=== PATIENT | male | born 1980 | race American Indian/Alaskan Native ===

== ENCOUNTER 2020-10-04 10:33 | Inpatient (IN) | payer SELFPAY ==
[2020-10-04] MEDS ORDERED: Sodium Chloride 0.9% 1,000 ML IV ONE ×2 (10:44→12:33)
--- NOTE | 2020-10-04 11:02 | EDM.PDOC ---
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 Pt states he as been 'sweating' a lot over the past 3 days. He states no alcohol use in the last several days. He states he has been drinking large amounts of water. He admits to reusing needles with his drug use. Onset: Sudden Onset Date: 10/02/20 Onset Time: 08:00 Duration: Getting Worse Location: Reports: Abdomen, Generalized Quality: Reports: Ache (all over ), Sharp (abdomen) Improves with: Reports: None Worsens with: Reports: None Associated Symptoms: Reports: Diaphoresis, Fever/Chills Right Lower Abdominal Pain Score (Numeric/FACES): 10 (gerneralized) back Pain Score (Numeric/FACES): 7 - Related Data Allergies Allergy/AdvReac Type Severity Reaction Status Date / Time No Known Allergies Allergy Verified 10/04/20 17:00 Home Meds: Home Meds NK [No Known Home Meds] 10/04/20 [History] ED ROS GENERAL - Review of Systems Review Of Systems: See Below Constitutional: Reports: Chills, Weakness, Diaphoresis HEENT: Reports: No Symptoms Respiratory: Reports: Shortness of Breath Cardiovascular: Reports: Lightheadedness Endocrine: Reports: No Symptoms GI/Abdominal: Reports: Abdominal Pain (right lower quadrant), Constipation, Vomiting (yesterday, brown) : Reports: No Symptoms Musculoskeletal: Reports: Neck Pain, Back Pain, Muscle Pain Skin: Reports: Diaphoresis Neurological: Reports: Headache Psychiatric: Reports: No Symptoms Hematologic/Lymphatic: Reports: No Symptoms ED EXAM, SEPSIS - Physical Exam Exam: See Below Exam Limited By: No Limitations General Appearance: Alert, Moderate Distress Eye Exam: Bilateral Eye: Abnormal EOM Ears: Normal External Exam, Normal Canal, Hearing Grossly Normal, Normal TMs Nose: Normal Inspection, No Blood Throat/Mouth: Normal Inspection, Normal Lips, Normal Teeth, Normal Gums, Normal Oropharynx, Normal Voice, No Airway Compromise Head: Atraumatic, Normocephalic Neck: Normal Inspection, Supple, Full Range of Motion Respiratory/Chest: Lungs Clear, Normal Breath Sounds Cardiovascular: Normal Peripheral Pulses, No Edema, No Gallop, No JVD, No Murmur, No Rub, Tachycardia Peripheral Pulses: 2+: Carotid (L), Carotid (R), Radial (L), Radial (R) GI/Abdominal Exam: Normal Bowel Sounds, Guarding, Rebound, Tender Extremities: Normal Inspection, Normal Range of Motion, Normal Capillary Refill Neurological: Alert, Oriented, CN II-XII Intact, Normal Cognition Psychiatric: Anxious Skin: Normal Color, Diaphoretic Lymphatic: Bilateral: No Adenopathy #1 Interpretation EKG Date: 10/04/20 Time: 11:06 Rhythm: Other (sinus tach) Rate (Beats/Min): 111 P-Wave: Present QRS: Normal Course - Vital Signs Last Recorded V/S: Last Vital Signs Temp 36.8 C 10/04/20 18:00 Pulse 130 H 10/04/20 18:00 Resp 27 H 10/04/20 18:00 BP 118/64 10/04/20 18:00 Pulse Ox 98 10/04/20 18:00 - Orders/Labs/Meds Orders: Active Orders 24 hr Category Date Time Status Chest 2V [CR] Stat Exams 10/04/20 10:44 Taken CULTURE BLOOD [BC] Urgent Lab 10/04/20 11:15 Received CULTURE BLOOD [BC] Urgent Lab 10/04/20 11:20 Received Piperacillin/Tazobactam [Zosyn] 3.375 gm Med 10/04/20 16:00 Active Sodium Chloride 0.9% [Normal Saline] 50 ml IV Q6H Vancomycin Med 10/04/20 16:00 Pending 1 gm IV .PHARMACY TO DOSE Blood Culture x2 Reflex Set [OM.PC] Urgent Oth 10/04/20 10:44 Ordered EKG 12 Lead [EK] Stat Ther 10/04/20 10:44 Stop Req Medication Orders Acetaminophen (Acetaminophen 325 Mg Tab) 650 mg PO Q4H PRN PRN Reason: Pain (Mild 1-3)/fever Last Admin: 10/04/20 17:16 Dose: 650 mg Documented by: ROXI Hydromorphone HCl (Hydromorphone 1 Mg/Ml Syringe) 1 mg IVPUSH Q3H PRN PRN Reason: Pain Last Admin: 10/04/20 17:17 Dose: 1 mg Documented by: ROXI Piperacillin Sod/Tazobactam (Sod 3.375 gm/ Sodium Chloride) 50 mls @ 100 mls/hr IV Q6H [facility], [facility] Last Admin: 10/04/20 16:22 Dose: 100 mls/hr Documented by: KATHRIN Vancomycin HCl 1.25 gm/ Sodium (Chloride) 250 mls @ 166.667 mls/hr IV Q12H [facility], [facility]–1983 Lactated Ringer's (Ringers, Lactated) 1,000 mls @ 125 mls/hr IV ASDIRECTED [facility], [facility]–1983 Last Admin: 10/04/20 20:05 Dose: 125 mls/hr Documented by: CECILIA Ondansetron HCl (Ondansetron 4 Mg/2 Ml Sdv) 4 mg IV Q4H PRN PRN Reason: Nausea/Vomiting Polyethylene Glycol (Polyethylene Glycol 3350 Powder 17 Gm Packet) 17 gm PO DAILY PRN PRN Reason: Constipation Vancomycin HCl (Vancomycin 1 Gm Sdv) 1 gm IV .PHARMACY TO DOSE [facility], [facility] Labs: Laboratory Tests 10/04/20 10/04/20 10/04/20 Range/Units 10:46 10:46 10:46 WBC 3.2 L (4.5-11.0) K/uL RBC 5.13 (4.30-5.90) M/uL Hgb 14.7 (12.0-15.0) g/dL Hct 44.6 (40.0-54.0) % MCV 87 (80-98) fL MCH 29 (27-31) pg MCHC 33 (32-36) % Plt Count 38 L (150-400) K/uL Add Manual Diff Yes Neutrophils % (Manual) 72 H (36-66) % Band Neutrophils % 5 (5-11) % Lymphocytes % (Manual) 19 L (24-44) % Monocytes % (Manual) 3 (2-6) % Eosinophils % (Manual) 1 L (2-4) % Basophils % (Manual) 0 (0-1) % Sodium 134 L (140-148) mmol/L Potassium 4.3 (3.6-5.2) mmol/L Chloride 97 L (100-108) mmol/L Carbon Dioxide 27 (21-32) mmol/L Anion Gap 14.3 H (5.0-14.0) mmol/L BUN 18 (7-18) mg/dL Creatinine 1.1 (0.8-1.3) mg/dL Est Cr Clr Drug Dosing 96.98 mL/min Estimated GFR (MDRD) > 60 (>60) Glucose 134 H (74-106) mg/dL Lactic Acid 2.0 (0.4-2.0) mmol/L Calcium 8.8 (8.5-10.1) mg/dL Total Bilirubin 1.4 H (0.2-1.0) mg/dL AST 49 H (15-37) U/L ALT 234 H (12-78) U/L Alkaline Phosphatase 243 H (46-116) U/L C-Reactive Protein (0.0-0.3) mg/dL Total Protein 7.2 (6.4-8.2) g/dL Albumin 3.0 L (3.4-5.0) g/dL Globulin 4.2 H (2.3-3.5) g/dL Albumin/Globulin Ratio 0.7 L (1.2-2.2) Procalcitonin ng/mL Urine Color (YELLOW) Urine Appearance (CLEAR) Urine pH (5.0-8.0) Ur Specific [place] (1.008-1.030) Urine Protein (NEGATIVE) mg/dL Urine Glucose (UA) (NEGATIVE) mg/dL Urine Ketones (NEGATIVE) mg/dL Urine Occult Blood (NEGATIVE) Urine Nitrite (NEGATIVE) Urine Bilirubin (NEGATIVE) Urine Urobilinogen (0.2-1.0) EU/dL Ur Leukocyte Esterase (NEGATIVE) Urine RBC (0-5) Urine WBC (0-5) Ur Epithelial Cells Amorphous Sediment Urine Bacteria Urine Mucus Urine Opiates Screen (NEGATIVE) Ur Oxycodone Screen (NEGATIVE) Urine Methadone Screen (NEGATIVE) Ur Propoxyphene Screen (NEGATIVE) Ur Barbiturates Screen (NEGATIVE) Ur Tricyclics Screen (NEGATIVE) Ur Phencyclidine Scrn (NEGATIVE) Ur Amphetamine Screen (NEGATIVE) U Methamphetamines Scrn (NEGATIVE) Urine MDMA Screen (NEGATIVE) U Benzodiazepines Scrn (NEGATIVE) U Cocaine Metab Screen (NEGATIVE) U Marijuana (THC) Screen (NEGATIVE) Influenza Type A RNA (NEGATIVE) RSV RNA (INAAT) (NEGATIVE) Influenza Type B RNA (NEGATIVE) SARS-CoV-2 RNA (MARIA ISABEL) (NEGATIVE) 10/04/20 10/04/20 10/04/20 Range/Units 10:46 10:46 12:08 WBC (4.5-11.0) K/uL RBC (4.30-5.90) M/uL Hgb (12.0-15.0) g/dL Hct (40.0-54.0) % MCV (80-98) fL MCH (27-31) pg MCHC (32-36) % Plt Count (150-400) K/uL Add Manual Diff Neutrophils % (Manual) (36-66) % Band Neutrophils % (5-11) % Lymphocytes % (Manual) (24-44) % Monocytes % (Manual) (2-6) % Eosinophils % (Manual) (2-4) % Basophils % (Manual) (0-1) % Sodium (140-148) mmol/L Potassium (3.6-5.2) mmol/L Chloride (100-108) mmol/L Carbon Dioxide (21-32) mmol/L Anion Gap (5.0-14.0) mmol/L BUN (7-18) mg/dL Creatinine (0.8-1.3) mg/dL Est Cr Clr Drug Dosing mL/min Estimated GFR (MDRD) (>60) Glucose (74-106) mg/dL Lactic Acid (0.4-2.0) mmol/L Calcium (8.5-10.1) mg/dL Total Bilirubin (0.2-1.0) mg/dL AST (15-37) U/L ALT (12-78) U/L Alkaline Phosphatase (46-116) U/L C-Reactive Protein 23.72 H (0.0-0.3) mg/dL Total Protein (6.4-8.2) g/dL Albumin (3.4-5.0) g/dL Globulin (2.3-3.5) g/dL Albumin/Globulin Ratio (1.2-2.2) Procalcitonin 3.70 H* ng/mL Urine Color (YELLOW) Urine Appearance (CLEAR) Urine pH (5.0-8.0) Ur Specific [place] (1.008-1.030) Urine Protein (NEGATIVE) mg/dL Urine Glucose (UA) (NEGATIVE) mg/dL Urine Ketones (NEGATIVE) mg/dL Urine Occult Blood (NEGATIVE) Urine Nitrite (NEGATIVE) Urine Bilirubin (NEGATIVE) Urine Urobilinogen (0.2-1.0) EU/dL Ur Leukocyte Esterase (NEGATIVE) Urine RBC (0-5) Urine WBC (0-5) Ur Epithelial Cells Amorphous Sediment Urine Bacteria Urine Mucus Urine Opiates Screen (NEGATIVE) Ur Oxycodone Screen (NEGATIVE) Urine Methadone Screen (NEGATIVE) Ur Propoxyphene Screen (NEGATIVE) Ur Barbiturates Screen (NEGATIVE) Ur Tricyclics Screen (NEGATIVE) Ur Phencyclidine Scrn (NEGATIVE) Ur Amphetamine Screen (NEGATIVE) U Methamphetamines Scrn (NEGATIVE) Urine MDMA Screen (NEGATIVE) U Benzodiazepines Scrn (NEGATIVE) U Cocaine Metab Screen (NEGATIVE) U Marijuana (THC) Screen (NEGATIVE) Influenza Type A RNA Negative (NEGATIVE) RSV RNA (INAAT) Negative (NEGATIVE) Influenza Type B RNA Negative (NEGATIVE) SARS-CoV-2 RNA (MARIA ISABEL) Negative (NEGATIVE) 10/04/20 10/04/20 Range/Units 13:01 13:01 WBC (4.5-11.0) K/uL RBC (4.30-5.90) M/uL Hgb (12.0-15.0) g/dL Hct (40.0-54.0) % MCV (80-98) fL MCH (27-31) pg MCHC (32-36) % Plt Count (150-400) K/uL Add Manual Diff Neutrophils % (Manual) (36-66) % Band Neutrophils % (5-11) % Lymphocytes % (Manual) (24-44) % Monocytes % (Manual) (2-6) % Eosinophils % (Manual) (2-4) % Basophils % (Manual) (0-1) % Sodium (140-148) mmol/L Potassium (3.6-5.2) mmol/L Chloride (100-108) mmol/L Carbon Dioxide (21-32) mmol/L Anion Gap (5.0-14.0) mmol/L BUN (7-18) mg/dL Creatinine (0.8-1.3) mg/dL Est Cr Clr Drug Dosing mL/min Estimated GFR (MDRD) (>60) Glucose (74-106) mg/dL Lactic Acid (0.4-2.0) mmol/L Calcium (8.5-10.1) mg/dL Total Bilirubin (0.2-1.0) mg/dL AST (15-37) U/L ALT (12-78) U/L Alkaline Phosphatase (46-116) U/L C-Reactive Protein (0.0-0.3) mg/dL Total Protein (6.4-8.2) g/dL Albumin (3.4-5.0) g/dL Globulin (2.3-3.5) g/dL Albumin/Globulin Ratio (1.2-2.2) Procalcitonin ng/mL Urine Color Yellow (YELLOW) Urine Appearance Clear (CLEAR) Urine pH 6.5 (5.0-8.0) Ur Specific [place] 1.015 (1.008-1.030) Urine Protein 30 H (NEGATIVE) mg/dL Urine Glucose (UA) Negative (NEGATIVE) mg/dL Urine Ketones Negative (NEGATIVE) mg/dL Urine Occult Blood Negative (NEGATIVE) Urine Nitrite Negative (NEGATIVE) Urine Bilirubin Negative (NEGATIVE) Urine Urobilinogen 2.0 H (0.2-1.0) EU/dL Ur Leukocyte Esterase Negative (NEGATIVE) Urine RBC 0-5 (0-5) Urine WBC 0-5 (0-5) Ur Epithelial Cells Rare Amorphous Sediment Not seen Urine Bacteria Not seen Urine Mucus Not seen Urine Opiates Screen Negative (NEGATIVE) Ur Oxycodone Screen Negative (NEGATIVE) Urine Methadone Screen Negative (NEGATIVE) Ur Propoxyphene Screen Negative (NEGATIVE) Ur Barbiturates Screen Negative (NEGATIVE) Ur Tricyclics Screen Negative (NEGATIVE) Ur Phencyclidine Scrn Negative (NEGATIVE) Ur Amphetamine Screen Presumptive positive H (NEGATIVE) U Methamphetamines Scrn Presumptive positive H (NEGATIVE) Urine MDMA Screen Negative (NEGATIVE) U Benzodiazepines Scrn Negative (NEGATIVE) U Cocaine Metab Screen Negative (NEGATIVE) U Marijuana (THC) Screen Presumptive positive H (NEGATIVE) Influenza Type A RNA (NEGATIVE) RSV RNA (INAAT) (NEGATIVE) Influenza Type B RNA (NEGATIVE) SARS-CoV-2 RNA (MARIA ISABEL) (NEGATIVE) Meds: Medications Generic Name Dose Route Start Last Admin Trade Name Freq PRN Reason Stop Dose Admin Acetaminophen 650 mg 10/04/20 16:56 10/04/20 17:16 Acetaminophen 325 Mg Tab PO 650 mg Q4H PRN Administration Pain (Mild 1-3)/fever Hydromorphone HCl 1 mg 10/04/20 16:56 10/04/20 17:17 Hydromorphone 1 Mg/Ml Syringe IVPUSH 1 mg Q3H PRN Administration Pain Piperacillin Sod/Tazobactam 50 mls @ 100 mls/hr 10/04/20 16:00 10/04/20 16:22 Sod 3.375 gm/ Sodium Chloride IV 100 mls/hr Q6H ROD Administration Vancomycin HCl 1.25 gm/ Sodium 250 mls @ 166.667 mls/hr 10/05/20 05:00 Chloride IV Q12H ROD Lactated Ringer's 1,000 mls @ 125 mls/hr 10/04/20 17:00 10/04/20 20:05 Ringers, Lactated IV 125 mls/hr ASDIRECTED ROD Administration Ondansetron HCl 4 mg 10/04/20 16:56 Ondansetron 4 Mg/2 Ml Sdv IV Q4H PRN Nausea/Vomiting Polyethylene Glycol 17 gm 10/04/20 16:56 Polyethylene Glycol 3350 Powder 17 Gm Packet PO DAILY PRN Constipation Vancomycin HCl 1 gm 10/04/20 16:00 Vancomycin 1 Gm Sdv IV .PHARMACY TO DOSE ROD Discontinued Medications Generic Name Dose Route Start Last Admin Trade Name Freq PRN Reason Stop Dose Admin Hydromorphone HCl 1 mg 10/04/20 14:16 10/04/20 14:21 Hydromorphone 1 Mg/Ml Syringe IVPUSH 1 mg Q1H PRN Administration Pain Sodium Chloride 1,000 mls @ 999 mls/hr 10/04/20 10:44 10/04/20 11:06 Normal Saline IV 10/04/20 11:44 999 mls/hr BOLUS ONE Administration Protocol Sodium Chloride 100 mls @ 3 mls/sec 10/04/20 11:45 10/04/20 12:10 Normal Saline IV 10/04/20 11:46 3 mls/sec ASDIRECTED ROD Administration Sodium Chloride 1,000 mls @ 999 mls/hr 10/04/20 12:33 10/04/20 12:50 Normal Saline IV 10/04/20 13:33 999 mls/hr .BOLUS ONE Administration Lactated Ringer's 1,000 mls @ 999 mls/hr 10/04/20 16:00 Ringers, Lactated IV 10/04/20 17:01 ASDIRECTED ROD Vancomycin HCl 2 gm/ Sodium 500 mls @ 250 mls/hr 10/04/20 17:00 10/04/20 17:25 Chloride IV 10/04/20 18:59 250 mls/hr ONETIME ONE Administration Iopamidol 123 ml 10/04/20 11:36 10/04/20 12:10 Iopamidol 612 Mg/Ml 500 Ml Multipack Bottle IV 10/04/20 11:37 123 ml ONETIME ONE Administration Sodium Chloride 10 ml 10/04/20 10:44 10/04/20 12:10 Sodium Chloride 0.9% 10 Ml Syringe FLUSH 10 ml ASDIRECTED PRN Administration Keep Vein Open Sodium Chloride 10 ml 10/04/20 11:36 10/04/20 17:49 Sodium Chloride 0.9% 10 Ml Sdv FLUSH 10/04/20 11:37 Not Given ONETIME ONE - Radiology Interpretation Free Text/Narrative:: Chest xray - negative interpretation on preliminary read CT Results Date: 10/04/20 (Fat stranding in the region of the appendix without visualization of the appendix, thickened bladder wall, diverticulosis without presense of divertiulitis) - Re-Assessments/Exams Free Text/Narrative Re-Assessment/Exam: 10/04/20 15:06 Pt given 1 mg of hydromorphone with some relief. Pt has received 2 liters of fluid in the ER. Consult with hospitalist regarding current lab values, with particular concern of low platelets, low WBC and presence of elevated CRP. Potential viral infection, (endocarditis, viral liver infection). Departure - Departure Time of Disposition: 16:52 Disposition: Admitted As Inpatient 68 Clinical Impression: Thrombocytopenia, Elevated C-reactive protein (CRP) - Discharge Information Sepsis Event Note (ED) - Focused Exam Vital Signs: Vital Signs Temp Pulse Resp BP Pulse Ox 10/04/20 15:19 118 H 18 162/113 H 97 10/04/20 15:00 116 H 157/104 H 10/04/20 12:42 109 H 16 158/86 H 98 10/04/20 12:26 110 H 22 H 141/80 H 97 10/04/20 12:24 158/86 H 10/04/20 12:11 106 H 25 H 131/77 98 10/04/20 12:03 118/79 10/04/20 11:41 115 H 16 116/75 100 10/04/20 11:26 110 H 17 117/70 98 10/04/20 11:11 116 H 20 112/72 97 10/04/20 10:56 111 H 19 117/72 99 10/04/20 10:53 36.3 C 114 H 22 H 124/85 100 10/04/20 10:47 36.3 C 114 H 22 H 124/85 100 10/04/20 10:44 124/85 - My Orders Last 24 Hours: My Active Orders 10/04/20 10:44 Chest 2V [CR] Stat Blood Culture x2 Reflex Set [OM.PC] Urgent EKG 12 Lead [EK] Stat 10/04/20 11:15 CULTURE BLOOD [BC] Urgent 10/04/20 11:20 CULTURE BLOOD [BC] Urgent - Assessment/Plan Last 24 Hours: My Active Orders 10/04/20 10:44 Chest 2V [CR] Stat Blood Culture x2 Reflex Set [OM.PC] Urgent EKG 12 Lead [EK] Stat 10/04/20 11:15 CULTURE BLOOD [BC] Urgent 10/04/20 11:20 CULTURE BLOOD [BC] Urgent
[2020-10-04] MEDS: Sodium Chloride 0.9% 10 ML Syringe FLUSH PRN ×2 (11:07→12:10)
[2020-10-04] MEDS ORDERED: Iopamidol 612 MG/ML 500 ML Multipack Bottle IV ONE (11:36)
[2020-10-04] MEDS ORDERED: Sodium Chloride 0.9% 10 ML SDV FLUSH ONE (11:36)
[2020-10-04] MEDS ORDERED: Sodium Chloride 0.9% 100 ML IV SCH (11:45)
[2020-10-04 13:00] LABS: CORONAVIRUS COVID-19 NAA NEGATIVE (NEGATIVE)
--- NOTE | 2020-10-04 13:01 | CRLCT ---
Indication: Right lower quadrant pain. Tenderness. Technique: Multiple contiguous axial images were obtained from the lung bases through the symphysis pubis after the intravenous administration of 123 milliliters [id number] note [address] all [address] scans at this facility use dose modulation, iterative reconstruction, and/or weight-based dosing when appropriate to reduce radiation dose to as low as reasonably achievable. Comparison: None Findings: The lung bases are clear. The heart is normal in size. No pericardial effusions identified. A hiatal hernia is present. The liver, gallbladder, spleen, pancreas, adrenals, and kidneys are normal. The gallbladder wall is contracted. The gallbladder is contracted. No intrahepatic biliary ductal dilatation is identified. No hydronephrosis identified. In the pelvis, the prostate gland is grossly normal. The wall of the urinary bladder is mildly prominent. The small and large bowel are normal in caliber. A moderate amount of stool is identified within the colon. Diverticulosis is identified. There is no evidence of diverticulitis. Appendix is not clearly identified. However, in the right lower quadrant, minimal fat stranding is identified. This is best identified on images 1. 06/15/2022, series 2. 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 Impression: Minimal fat stranding identified in the right lower quadrant. However, the appendix is not clearly visualized. This is very nonspecific. A few normal size lymph nodes are also identified within the right lower quadrant, which can be seen with mesenteric lymphadenitis. Diverticulosis without clear evidence of diverticulitis. Prominence of the wall of the urinary bladder, uncertain significance Please note that all CT scans at this facility use dose modulation, iterative reconstruction, and/or weight-based dosing when appropriate to reduce radiation dose to as low as reasonably achievable. Dictated by Aida Powers MD @ 10/04/2020 12:59:[address] Aida Powers @ Oct 04 2020 12:59PM
[2020-10-04] MEDS ORDERED: HYDROmorphone 1 MG/ML Syringe IVPUSH PRN (14:16)
[2020-10-04] MEDS ORDERED: Lactated Ringers 1,000 ML IV SCH (16:00)
[2020-10-04] MEDS ORDERED: Vancomycin 1 GM SDV IV SCH (16:00)
--- NOTE | 2020-10-04 16:16 | PCM.HP.2 ---
H&P History of Present Illness - General Date of Service: 10/04/20 Admit Problem/Dx: Admission Diagnosis/Problem Admission Diagnosis/Problem Sepsis Source of Information: Patient, Provider, RN Notes Reviewed History Limitations: Reports: No Limitations - History of Present Illness Initial Comments - Free Text/Narative: Mr. Wilson is a 40-year-old gentleman who was admitted through the emergency department with myalgias, weakness, anorexia, tachycardia, thrombocytopenia, secondary to sepsis. He reports that he has not felt well for the past 2 to 3 days and symptoms have occurred and progressed during that period of time. He also notes fever at home and reports that his girlfriend documented a temperature of 105 degrees. He presented to the emergency department this morning for further evaluation. He does report a longstanding history of IV drug abuse, recently has been using IV methamphetamine and fentanyl. On evaluation CRP is markedly elevated as well as elevation in procalcitonin level. He is noted to be tachycardic with a heart rate in the range of 110-130. Blood pressure has been stable and he has been afebrile while in the emergency department. Chest x-ray shows no obvious infiltrates, CT scan of the abdomen and pelvis shows no obvious area of infection. Urinalysis is clear. Platelet count severely low at 38,000. Urine drug screen is positive for methamphetamine and marijuana. Right Lower Abdominal Pain Score (Numeric/FACES): 10 (gerneralized) - Related Data Allergies/Adverse Reactions: Allergies Allergy/AdvReac Type Severity Reaction Status Date / Time No Known Allergies Allergy Verified 10/04/20 10:50 Home Medications: Home Meds NK [No Known Home Meds] 10/04/20 [History] Past Medical History Musculoskeletal History: Reports: Neck Pain, Chronic Neurological History: Reports: Seizure Other Neuro History: x1 thinks related to drugs Psychiatric History: Reports: Addiction - Infectious Disease History Infectious Disease History: Reports: Chicken Pox - Past Surgical History Head Surgeries/Procedures: Reports: None Neurological Surgical History: Reports: None Musculoskeletal Surgical History: Reports: None Dermatological Surgical History: Reports: None Social & Family History - Tobacco Use Tobacco Use Status *Q: Current Every Day Tobacco User Years of Tobacco use: 20 Packs/Tins Daily: 0.5 Used Tobacco, but Quit: No Second Hand Smoke Exposure: Yes - Caffeine Use Caffeine Use: Reports: None - Recreational Drug Use Recreational Drug Use: Yes Drug Use in Last 12 Months: Yes Recreational Drug Type: Reports: Heroin, Methamphetamine Recreational Drug Use Frequency: Daily H&P Review of Systems - Review of Systems: Review Of Systems: See Below General: Reports: Fever, Chills, Malaise, Weakness, Fatigue, Diaphoresis, Decreased Appetite HEENT: Reports: Headaches. Denies: Ear Pain, Eye Pain, Hearing Changes, Sinus Congestion, Sore Throat Pulmonary: Reports: Cough, Sputum. Denies: Shortness of Breath, Wheezing, Pleuritic Chest Pain, Hemoptysis Cardiovascular: Reports: No Symptoms Gastrointestinal: Reports: Abdominal Pain, Decreased Appetite. Denies: Difficulty Swallowing, Distension, Hematemesis, Hematochezia, Melena, Nausea, Vomiting Genitourinary: Reports: No Symptoms Musculoskeletal: Reports: Joint Pain, Muscle Pain. Denies: Back Pain, Joint Swelling Skin: Reports: No Symptoms Psychiatric: Reports: No Symptoms Neurological: Reports: No Symptoms Hematologic/Lymphatic: Reports: No Symptoms Immunologic: Reports: No Symptoms Exam - Exam Exam: See Below - Vital Signs Vital Signs: Last Vital Signs Temp 97.4 F 10/04/20 10:53 Pulse 118 H 10/04/20 15:19 Resp 18 10/04/20 15:19 BP 162/113 H 10/04/20 15:19 Pulse Ox 97 10/04/20 15:19 Weight: 180 lb - Exam General: Alert, Oriented, Cooperative, Moderate Distress HEENT: Conjunctiva Clear, Hearing Intact, Mucosa Moist & [place], Normal Nasal Septum, Posterior Pharynx Clear, Pupils Equal, Pupils Reactive Neck: Supple, Trachea Midline Lungs: Clear to Auscultation, Normal Respiratory Effort Cardiovascular: Regular Rhythm, Normal S1, Normal S2, Tachycardia. No: Systolic Murmur, Diastolic Murmur GI/Abdominal Exam: Soft, No Organomegaly, No Distention, Tender. No: Guarding, Rigid, Rebound Back Exam: Normal Inspection, Full Range of Motion Extremities: Non-Tender, No Pedal Edema Skin: Warm, Dry, Intact Neurological: Cranial Nerves Intact, Strength Equal Bilateral, Normal Speech, Normal Tone, Sensation Intact. No: Focal Deficit Neuro Extensive - Mental Status: Alert, Oriented x3, Normal Mood/Affect, Normal Cognition, Memory Intact - Patient Data Lab Results Last 24 hrs: Laboratory Results - last 24 hr 10/04/20 10/04/2010/04/21 Range/Units 10:46 10:46 10:46 WBC 3.2 L (4.5-11.0) K/uL RBC 5.13 (4.30-5.90) M/uL Hgb 14.7 (12.0-15.0) g/dL Hct 44.6 (40.0-54.0) % MCV 87 (80-98) fL MCH 29 (27-31) pg MCHC 33 (32-36) % Plt Count 38 L (150-400) K/uL Add Manual Diff Yes Neutrophils % (Manual) 72 H (36-66) % Band Neutrophils % 5 (5-11) % Lymphocytes % (Manual) 19 L (24-44) % Monocytes % (Manual) 3 (2-6) % Eosinophils % (Manual) 1 L (2-4) % Basophils % (Manual) 0 (0-1) % Sodium 134 L (140-148) mmol/L Potassium 4.3 (3.6-5.2) mmol/L Chloride 97 L (100-108) mmol/L Carbon Dioxide 27 (21-32) mmol/L Anion Gap 14.3 H (5.0-14.0) mmol/L BUN 18 (7-18) mg/dL Creatinine 1.1 (0.8-1.3) mg/dL Est Cr Clr Drug Dosing 96.98 mL/min Estimated GFR (MDRD) > 60 (>60) Glucose 134 H (74-106) mg/dL Lactic Acid 2.0 (0.4-2.0) mmol/L Calcium 8.8 (8.5-10.1) mg/dL Total Bilirubin 1.4 H (0.2-1.0) mg/dL AST 49 H (15-37) U/L ALT 234 H (12-78) U/L Alkaline Phosphatase 243 H (46-116) U/L C-Reactive Protein (0.0-0.3) mg/dL Total Protein 7.2 (6.4-8.2) g/dL Albumin 3.0 L (3.4-5.0) g/dL Globulin 4.2 H (2.3-3.5) g/dL Albumin/Globulin Ratio 0.7 L (1.2-2.2) Procalcitonin ng/mL Urine Color (YELLOW) Urine Appearance (CLEAR) Urine pH (5.0-8.0) Ur Specific [place] (1.008-1.030) Urine Protein (NEGATIVE) mg/dL Urine Glucose (UA) (NEGATIVE) mg/dL Urine Ketones (NEGATIVE) mg/dL Urine Occult Blood (NEGATIVE) Urine Nitrite (NEGATIVE) Urine Bilirubin (NEGATIVE) Urine Urobilinogen (0.2-1.0) EU/dL Ur Leukocyte Esterase (NEGATIVE) Urine RBC (0-5) Urine WBC (0-5) Ur Epithelial Cells Amorphous Sediment Urine Bacteria Urine Mucus Urine Opiates Screen (NEGATIVE) Ur Oxycodone Screen (NEGATIVE) Urine Methadone Screen (NEGATIVE) Ur Propoxyphene Screen (NEGATIVE) Ur Barbiturates Screen (NEGATIVE) Ur Tricyclics Screen (NEGATIVE) Ur Phencyclidine Scrn (NEGATIVE) Ur Amphetamine Screen (NEGATIVE) U Methamphetamines Scrn (NEGATIVE) Urine MDMA Screen (NEGATIVE) U Benzodiazepines Scrn (NEGATIVE) U Cocaine Metab Screen (NEGATIVE) U Marijuana (THC) Screen (NEGATIVE) Influenza Type A RNA (NEGATIVE) RSV RNA (INAAT) (NEGATIVE) Influenza Type B RNA (NEGATIVE) SARS-CoV-2 RNA (MARIA IS[facility]EL) (NEGATIVE) 10/04/20 10/04/20 10/04/20 Range/Units 10:46 10:46 12:08 WBC (4.5-11.0) K/uL RBC (4.30-5.90) M/uL Hgb (12.0-15.0) g/dL Hct (40.0-54.0) % MCV (80-98) fL MCH (27-31) pg MCHC (32-36) % Plt Count (150-400) K/uL Add Manual Diff Neutrophils % (Manual) (36-66) % Band Neutrophils % (5-11) % Lymphocytes % (Manual) (24-44) % Monocytes % (Manual) (2-6) % Eosinophils % (Manual) (2-4) % Basophils % (Manual) (0-1) % Sodium (140-148) mmol/L Potassium (3.6-5.2) mmol/L Chloride (100-108) mmol/L Carbon Dioxide (21-32) mmol/L Anion Gap (5.0-14.0) mmol/L BUN (7-18) mg/dL Creatinine (0.8-1.3) mg/dL Est Cr Clr Drug Dosing mL/min Estimated GFR (MDRD) (>60) Glucose (74-106) mg/dL Lactic Acid (0.4-2.0) mmol/L Calcium (8.5-10.1) mg/dL Total Bilirubin (0.2-1.0) mg/dL AST (15-37) U/L ALT (12-78) U/L Alkaline Phosphatase (46-116) U/L C-Reactive Protein 23.72 H (0.0-0.3) mg/dL Total Protein (6.4-8.2) g/dL Albumin (3.4-5.0) g/dL Globulin (2.3-3.5) g/dL Albumin/Globulin Ratio (1.2-2.2) Procalcitonin 3.70 H* ng/mL Urine Color (YELLOW) Urine Appearance (CLEAR) Urine pH (5.0-8.0) Ur Specific [place] (1.008-1.030) Urine Protein (NEGATIVE) mg/dL Urine Glucose (UA) (NEGATIVE) mg/dL Urine Ketones (NEGATIVE) mg/dL Urine Occult Blood (NEGATIVE) Urine Nitrite (NEGATIVE) Urine Bilirubin (NEGATIVE) Urine Urobilinogen (0.2-1.0) EU/dL Ur Leukocyte Esterase (NEGATIVE) Urine RBC (0-5) Urine WBC (0-5) Ur Epithelial Cells Amorphous Sediment Urine Bacteria Urine Mucus Urine Opiates Screen (NEGATIVE) Ur Oxycodone Screen (NEGATIVE) Urine Methadone Screen (NEGATIVE) Ur Propoxyphene Screen (NEGATIVE) Ur Barbiturates Screen (NEGATIVE) Ur Tricyclics Screen (NEGATIVE) Ur Phencyclidine Scrn (NEGATIVE) Ur Amphetamine Screen (NEGATIVE) U Methamphetamines Scrn (NEGATIVE) Urine MDMA Screen (NEGATIVE) U Benzodiazepines Scrn (NEGATIVE) U Cocaine Metab Screen (NEGATIVE) U Marijuana (THC) Screen (NEGATIVE) Influenza Type A RNA Negative (NEGATIVE) RSV RNA (INAAT) Negative (NEGATIVE) Influenza Type B RNA Negative (NEGATIVE) SARS-CoV-2 RNA (MARIA ISABEL) Negative (NEGATIVE) 10/04/20 10/04/20 Range/Units 13:01 13:01 WBC (4.5-11.0) K/uL RBC (4.30-5.90) M/uL Hgb (12.0-15.0) g/dL Hct (40.0-54.0) % MCV (80-98) fL MCH (27-31) pg MCHC (32-36) % Plt Count (150-400) K/uL Add Manual Diff Neutrophils % (Manual) (36-66) % Band Neutrophils % (5-11) % Lymphocytes % (Manual) (24-44) % Monocytes % (Manual) (2-6) % Eosinophils % (Manual) (2-4) % Basophils % (Manual) (0-1) % Sodium (140-148) mmol/L Potassium (3.6-5.2) mmol/L Chloride (100-108) mmol/L Carbon Dioxide (21-32) mmol/L Anion Gap (5.0-14.0) mmol/L BUN (7-18) mg/dL Creatinine (0.8-1.3) mg/dL Est Cr Clr Drug Dosing mL/min Estimated GFR (MDRD) (>60) Glucose (74-106) mg/dL Lactic Acid (0.4-2.0) mmol/L Calcium (8.5-10.1) mg/dL Total Bilirubin (0.2-1.0) mg/dL AST (15-37) U/L ALT (12-78) U/L Alkaline Phosphatase (46-116) U/L C-Reactive Protein (0.0-0.3) mg/dL Total Protein (6.4-8.2) g/dL Albumin (3.4-5.0) g/dL Globulin (2.3-3.5) g/dL Albumin/Globulin Ratio (1.2-2.2) Procalcitonin ng/mL Urine Color Yellow (YELLOW) Urine Appearance Clear (CLEAR) Urine pH 6.5 (5.0-8.0) Ur Specific [place] 1.015 (1.008-1.030) Urine Protein 30 H (NEGATIVE) mg/dL Urine Glucose (UA) Negative (NEGATIVE) mg/dL Urine Ketones Negative (NEGATIVE) mg/dL Urine Occult Blood Negative (NEGATIVE) Urine Nitrite Negative (NEGATIVE) Urine Bilirubin Negative (NEGATIVE) Urine Urobilinogen 2.0 H (0.2-1.0) EU/dL Ur Leukocyte Esterase Negative (NEGATIVE) Urine RBC 0-5 (0-5) Urine WBC 0-5 (0-5) Ur Epithelial Cells Rare Amorphous Sediment Not seen Urine Bacteria Not seen Urine Mucus Not seen Urine Opiates Screen Negative (NEGATIVE) Ur Oxycodone Screen Negative (NEGATIVE) Urine Methadone Screen Negative (NEGATIVE) Ur Propoxyphene Screen Negative (NEGATIVE) Ur Barbiturates Screen Negative (NEGATIVE) Ur Tricyclics Screen Negative (NEGATIVE) Ur Phencyclidine Scrn Negative (NEGATIVE) Ur Amphetamine Screen Presumptive positive H (NEGATIVE) U Methamphetamines Scrn Presumptive positive H (NEGATIVE) Urine MDMA Screen Negative (NEGATIVE) U Benzodiazepines Scrn Negative (NEGATIVE) U Cocaine Metab Screen Negative (NEGATIVE) U Marijuana (THC) Screen Presumptive positive H (NEGATIVE) Influenza Type A RNA (NEGATIVE) RSV RNA (INAAT) (NEGATIVE) Influenza Type B RNA (NEGATIVE) SARS-CoV-2 RNA (MARIA ISABEL) (NEGATIVE) Result Diagrams: 10/04/20 10:46 10/04/20 10:46 Sepsis Event Note - Evaluation Sepsis Screening Result: Possible Sepsis Risk - Focused Exam Vital Signs: Vital Signs Temp Pulse Resp BP Pulse Ox 10/04/20 15:19 118 H 18 162/113 H 97 10/04/20 15:00 116 H 157/104 H 10/04/20 12:42 109 H 16 158/86 H 98 10/04/20 12:26 110 H 22 H 141/80 H 97 10/04/20 12:24 158/86 H 10/04/20 12:11 106 H 25 H 131/77 98 10/04/20 12:03 118/79 10/04/20 11:41 115 H 16 116/75 100 10/04/20 11:26 110 H 17 117/70 98 10/04/20 11:11 116 H 20 112/72 97 10/04/20 10:56 111 H 19 117/72 99 10/04/20 10:53 97.4 F 114 H 22 H 124/85 100 10/04/20 10:47 97.4 F 114 H 22 H 124/85 100 10/04/20 10:44 124/85 *Q Meaningful Use (ADM) - VTE *Q VTE Pharmacological Contraindications *Q: Thrombocytopenia - VTE Risk Assess *Q Each Risk Factor Represents 1 Point: Sepsis Total Score 1 Point Risk Factors: 1 Each Risk Factor Represents 2 Points: None Total Score 2 Point Risk Factors: 0 Each Risk Factor Represents 3 Points: None Total Score 3 Point Risk Factors: 0 Each Risk Factor Represents 5 Points: None Total Score 5 Point Risk Factors: 0 Venous Thromboembolism Risk Factor Score *Q: 1 Problem List Initiated/Reviewed/Updated: Yes Orders Last 24hrs: Active Orders 24 hr Category Date Time Status Patient Status Manage Transfer [TRANSFER] Routine ADT 10/04/20 16:04 Ordered Blood Pressure Mgt: Sepsis [RC] [id number] Care 10/04/20 10:50 Active Cardiac Monitoring [RC] CONTINUOUS Care 10/04/20 10:50 Active EKG Documentation Completion [RC] ASDIRECTED Care 10/04/20 10:50 Active Chest 2V [CR] Stat Exams 10/04/20 10:44 Taken CBC WITH AUTO DIFF [HEME] Stat Lab 10/04/20 16:01 Ordered CULTURE BLOOD [BC] Urgent Lab 10/04/20 11:15 Received CULTURE BLOOD [BC] Urgent Lab 10/04/20 11:20 Received D-DIMER QUANTITATIVE [COAG] Stat Lab 10/04/20 15:54 Ordered FIBRINOGEN [COAG] Stat Lab 10/04/20 15:54 Ordered HIV RAPID SCREEN RLFX COMFIRM [CHEM] Stat Lab 10/04/20 15:54 Ordered INR,PT,PROTHROMBIN TIME [COAG] Stat Lab 10/04/20 15:54 Ordered LACTIC ACID [CHEM] Stat Lab 10/04/20 16:03 Ordered PTT,PARTIAL THROMBOPLSTIN TIME [COAG] Stat Lab 10/04/20 15:54 Ordered VANCOMYCIN TROUGH [CHEM] Timed Lab 10/06/20 16:00 Ordered HYDROmorphone [Dilaudid] Med 10/04/20 14:16 Active 1 mg IVPUSH Q1H PRN Lactated Ringers [Ringers, Lactated] 1,000 ml Med 10/04/20 16:00 Active IV ASDIRECTED Piperacillin/Tazobactam [Zosyn] 3.375 gm Med 10/04/20 16:00 Active Sodium Chloride 0.9% [Normal Saline] 50 ml IV Q6H Sodium Chloride 0.9% [Saline Flush] Med 10/04/20 10:44 Active 10 ml FLUSH ASDIRECTED PRN Vancomycin Med 10/04/20 16:00 Pending 1 gm IV .PHARMACY TO DOSE Vancomycin 1.25 gm Med 10/05/20 05:00 Active Sodium Chloride 0.9% [Normal Saline] 250 ml IV Q12H Vancomycin 2 gm Med 10/04/20 17:00 Active Sodium Chloride 0.9% [Normal Saline] 500 ml IV ONETIME Blood Culture x2 Reflex Set [OM.PC] Urgent Oth 10/04/20 10:44 Ordered Saline Lock Insert [OM.PC] Stat Oth 10/04/20 10:44 Ordered Severe Sepsis Onset Time [OM.PC] Stat Oth 10/04/20 10:44 Ordered Resuscitation Status Routine Resus Stat 10/04/20 16:05 Ordered EKG 12 Lead [EK] Stat Ther 10/04/20 10:44 Ordered Medication Orders Hydromorphone HCl (Hydromorphone 1 Mg/Ml Syringe) 1 mg IVPUSH Q1H PRN PRN Reason: Pain Last Admin: 10/04/20 14:21 Dose: 1 mg Documented by: KATHRIN Lactated Ringer's (Ringers, Lactated) 1,000 mls @ 999 mls/hr IV ASDIRECTED ROD Stop: 10/04/20 17:01 Piperacillin Sod/Tazobactam (Sod 3.375 gm/ Sodium Chloride) 50 mls @ 100 mls/hr IV Q6H ROD Vancomycin HCl 2 gm/ Sodium (Chloride) 500 mls @ 250 mls/hr IV ONETIME ONE Stop: 10/04/20 18:59 Vancomycin HCl 1.25 gm/ Sodium (Chloride) 250 mls @ 166.667 mls/hr IV Q12H ROD Sodium Chloride (Sodium Chloride 0.9% 10 Ml Syringe) 10 ml FLUSH ASDIRECTED PRN PRN Reason: Keep Vein Open Last Admin: 10/04/20 12:10 Dose: 10 ml Documented by: Admin: 10/04/20 11:07 Dose: 10 ml Documented by: KATHRIN Vancomycin HCl (Vancomycin 1 Gm Sdv) 1 gm IV .PHARMACY TO DOSE [facility] Assessment/Plan Comment:: ASSESSMENT AND PLAN SEPSIS-source of infection not identified despite extensive evaluation. Marked elevation in CRP as well as procalcitonin level. He is tachycardic and reports recent fevers at home although he has been afebrile while in the emergency department. Longstanding history of IV drug abuse. -HIV testing -Blood cultures pending -IV fluid replacement per sepsis protocol -Empiric IV antibiotic therapy; vancomycin and Zosyn -Monitor in ICU -Nausea and pain medication as needed SEVERE THROMBOCYTOPENIA-likely secondary to underlying sepsis and bacterial infection -Recheck CBC now to confirm -Laboratory test to evaluate for DIC -Recheck platelet count in a.m. HISTORY OF IV DRUG USE-he reports recent use of IV fentanyl and methamphetamine -Monitor for withdrawal in ICU MAINTENANCE ISSUES -DVT prophylaxis; SCUDs -GI prophylaxis; not indicated -Bob catheter; not indicated -Nutrition; regular diet -Nicotine dependence; nicotine patch and nicotine gum CODE STATUS-FULL CODE ADMISSION STATUS-patient will be admitted to inpatient status, expect at least a 2 night hospital stay for evaluation and management of problems as outlined above. At the time of this admission I do not reasonably expected evaluation and management of this problem will require more than a 96 hour hospital stay. DISPOSITION-anticipate discharge to home after the hospital stay. - Mortality Measure Prognosis:: Good
[2020-10-04] MEDS: Piperacillin/Tazobactam 3.375 GM in Sodium Chloride 0.9% 50 ML IV SCH ×2 (16:22→21:48)
[2020-10-04] MEDS ORDERED: Polyethylene Glycol 3350 Powder 17 GM Packet PO PRN (16:56)
[2020-10-04] MEDS ORDERED: Ondansetron 4 MG/2 ML SDV IV PRN (16:56)
[2020-10-04] MEDS ORDERED: Vancomycin 2 GM in Sodium Chloride 0.9% 500 ML IV ONE (17:00)
[2020-10-04] MEDS: Acetaminophen 325 MG Tab PO PRN ×2 (17:16→21:23)
[2020-10-04] MEDS: HYDROmorphone 1 MG/ML Syringe IVPUSH PRN ×3 (17:17→23:14)
[2020-10-04] MEDS: Lactated Ringers 1,000 ML IV SCH (20:05)
[2020-10-05] MEDS: HYDROmorphone 1 MG/ML Syringe IVPUSH PRN ×6 (02:09→21:37)
[2020-10-05] MEDS: Acetaminophen 325 MG Tab PO PRN ×3 (04:08→14:55)
[2020-10-05] MEDS: Piperacillin/Tazobactam 3.375 GM in Sodium Chloride 0.9% 50 ML IV SCH (04:42)
[2020-10-05] MEDS: Lactated Ringers 1,000 ML IV SCH (05:23)
[2020-10-05] MEDS: Doxycycline 100 MG in Sodium Chloride 0.9% 100 ML IV SCH ×2 (08:50→20:59)
[2020-10-05] MEDS: Piperacillin/Tazobactam/Dext 3.375 GM in Premix Bag 1 BAG IV SCH ×3 (09:56→22:02)
[2020-10-05] MEDS ORDERED: Lactated Ringers 1,000 ML IV SCH (12:30)
--- NOTE | 2020-10-05 12:30 | PCM.PN ---
- General Info Date of Service: 10/05/20 Subjective Update: Mr. Wilson continues to experience fevers, myalgias, and headache. Initial blood cultures are negative. Appetite is modestly improved since admission. He does report that he has had exposure to ticks over the past few weeks. Functional Status: Reports: Tolerating Diet, Ambulating, Urinating - Review of Systems General: Reports: Weakness, Fatigue HEENT: Reports: Headaches Pulmonary: Reports: No Symptoms Cardiovascular: Reports: No Symptoms Gastrointestinal: Reports: No Symptoms Genitourinary: Reports: No Symptoms Musculoskeletal: Reports: Joint Pain - Patient Data Vitals - Most Recent: Last Vital Signs Temp 100.2 F 10/05/20 11:00 Pulse 108 H 10/05/20 11:00 Resp 13 10/05/20 11:00 BP 137/66 10/05/20 11:00 Pulse Ox 97 10/05/20 11:00 Weight - Most Recent: 180 lb I&O - Last 24 Hours: Intake & Output 10/04/20 10/05/20 10/05/20 22:59 06:59 14:59 Intake Total 240 1799 Output Total 775 400 Balance 240 1024 -400 Lab Results Last 24 Hours: Laboratory Results - last 24 hr 10/04/20 10/04/20 10/04/20 Range/Units 10:46 10:46 12:08 WBC (4.5-11.0) K/uL RBC (4.30-5.90) M/uL Hgb (12.0-15.0) g/dL Hct (40.0-54.0) % MCV (80-98) fL MCH (27-31) pg MCHC (32-36) % Plt Count (150-400) K/uL Add Manual Diff Neutrophils % (Manual) (36-66) % Band Neutrophils % (5-11) % Lymphocytes % (Manual) (24-44) % Monocytes % (Manual) (2-6) % Eosinophils % (Manual) (2-4) % Polychromasia PT (9.5-12.0) sec INR (0.80-1.20) APTT (27.0-36.0) sec Fibrinogen (200.0-400.0) mg/dL D-Dimer, Quantitative (0.0-500.0) ng/mL Sodium (140-148) mmol/L Potassium (3.6-5.2) mmol/L Chloride (100-108) mmol/L Carbon Dioxide (21-32) mmol/L Anion Gap (5.0-14.0) mmol/L BUN (7-18) mg/dL Creatinine (0.8-1.3) mg/dL Est Cr Clr Drug Dosing mL/min Estimated GFR (MDRD) (>60) Glucose (74-106) mg/dL Lactic Acid (0.4-2.0) mmol/L Calcium (8.5-10.1) mg/dL Magnesium (1.8-2.4) mg/dL Total Bilirubin (0.2-1.0) mg/dL AST (15-37) U/L ALT (12-78) U/L Alkaline Phosphatase (46-116) U/L C-Reactive Protein 23.72 H (0.0-0.3) mg/dL Total Protein (6.4-8.2) g/dL Albumin (3.4-5.0) g/dL Globulin (2.3-3.5) g/dL Albumin/Globulin Ratio (1.2-2.2) Procalcitonin 3.70 H* ng/mL Urine Color (YELLOW) Urine Appearance (CLEAR) Urine pH (5.0-8.0) Ur Specific [place] (1.008-1.030) Urine Protein (NEGATIVE) mg/dL Urine Glucose (UA) (NEGATIVE) mg/dL Urine Ketones (NEGATIVE) mg/dL Urine Occult Blood (NEGATIVE) Urine Nitrite (NEGATIVE) Urine Bilirubin (NEGATIVE) Urine Urobilinogen (0.2-1.0) EU/dL Ur Leukocyte Esterase (NEGATIVE) Urine RBC (0-5) Urine WBC (0-5) Ur Epithelial Cells Amorphous Sediment Urine Bacteria Urine Mucus Urine Opiates Screen (NEGATIVE) Ur Oxycodone Screen (NEGATIVE) Urine Methadone Screen (NEGATIVE) Ur Propoxyphene Screen (NEGATIVE) Ur Barbiturates Screen (NEGATIVE) Ur Tricyclics Screen (NEGATIVE) Ur Phencyclidine Scrn (NEGATIVE) Ur Amphetamine Screen (NEGATIVE) U Methamphetamines Scrn (NEGATIVE) Urine MDMA Screen (NEGATIVE) U Benzodiazepines Scrn (NEGATIVE) U Cocaine Metab Screen (NEGATIVE) U Marijuana (THC) Screen (NEGATIVE) HIV-1 Ab Rapid Screen (NON-REACT.) Influenza Type A RNA Negative (NEGATIVE) RSV RNA (INAAT) Negative (NEGATIVE) Influenza Type B RNA Negative (NEGATIVE) SARS-CoV-2 RNA (MARIA ISABEL) Negative (NEGATIVE) 10/04/20 10/04/20 10/04/20 Range/Units 13:01 13:01 16:20 WBC (4.5-11.0) K/uL RBC (4.30-5.90) M/uL Hgb (12.0-15.0) g/dL Hct (40.0-54.0) % MCV (80-98) fL MCH (27-31) pg MCHC (32-36) % Plt Count (150-400) K/uL Add Manual Diff Neutrophils % (Manual) (36-66) % Band Neutrophils % (5-11) % Lymphocytes % (Manual) (24-44) % Monocytes % (Manual) (2-6) % Eosinophils % (Manual) (2-4) % Polychromasia PT 10.3 (9.5-12.0) sec INR 0.94 (0.80-1.20) APTT 36.4 H (27.0-36.0) sec Fibrinogen 573.1 H (200.0-400.0) mg/dL D-Dimer, Quantitative (0.0-500.0) ng/mL Sodium (140-148) mmol/L Potassium (3.6-5.2) mmol/L Chloride (100-108) mmol/L Carbon Dioxide (21-32) mmol/L Anion Gap (5.0-14.0) mmol/L BUN (7-18) mg/dL Creatinine (0.8-1.3) mg/dL Est Cr Clr Drug Dosing mL/min Estimated GFR (MDRD) (>60) Glucose (74-106) mg/dL Lactic Acid (0.4-2.0) mmol/L Calcium (8.5-10.1) mg/dL Magnesium (1.8-2.4) mg/dL Total Bilirubin (0.2-1.0) mg/dL AST (15-37) U/L ALT (12-78) U/L Alkaline Phosphatase (46-116) U/L C-Reactive Protein (0.0-0.3) mg/dL Total Protein (6.4-8.2) g/dL Albumin (3.4-5.0) g/dL Globulin (2.3-3.5) g/dL Albumin/Globulin Ratio (1.2-2.2) Procalcitonin ng/mL Urine Color Yellow (YELLOW) Urine Appearance Clear (CLEAR) Urine pH 6.5 (5.0-8.0) Ur Specific [place] 1.015 (1.008-1.030) Urine Protein 30 H (NEGATIVE) mg/dL Urine Glucose (UA) Negative (NEGATIVE) mg/dL Urine Ketones Negative (NEGATIVE) mg/dL Urine Occult Blood Negative (NEGATIVE) Urine Nitrite Negative (NEGATIVE) Urine Bilirubin Negative (NEGATIVE) Urine Urobilinogen 2.0 H (0.2-1.0) EU/dL Ur Leukocyte Esterase Negative (NEGATIVE) Urine RBC 0-5 (0-5) Urine WBC 0-5 (0-5) Ur Epithelial Cells Rare Amorphous Sediment Not seen Urine Bacteria Not seen Urine Mucus Not seen Urine Opiates Screen Negative (NEGATIVE) Ur Oxycodone Screen Negative (NEGATIVE) Urine Methadone Screen Negative (NEGATIVE) Ur Propoxyphene Screen Negative (NEGATIVE) Ur Barbiturates Screen Negative (NEGATIVE) Ur Tricyclics Screen Negative (NEGATIVE) Ur Phencyclidine Scrn Negative (NEGATIVE) Ur Amphetamine Screen Presumptive positive H (NEGATIVE) U Methamphetamines Scrn Presumptive positive H (NEGATIVE) Urine MDMA Screen Negative (NEGATIVE) U Benzodiazepines Scrn Negative (NEGATIVE) U Cocaine Metab Screen Negative (NEGATIVE) U Marijuana (THC) Screen Presumptive positive H (NEGATIVE) HIV-1 Ab Rapid Screen (NON-REACT.) Influenza Type A RNA (NEGATIVE) RSV RNA (INAAT) (NEGATIVE) Influenza Type B RNA (NEGATIVE) SARS-CoV-2 RNA (MARIA ISABEL) (NEGATIVE) 10/04/20 10/04/20 10/04/20 Range/Units 16:20 16:20 16:20 WBC 3.1 L (4.5-11.0) K/uL RBC 4.85 (4.30-5.90) M/uL Hgb 13.9 (12.0-15.0) g/dL Hct 41.8 (40.0-54.0) % MCV 86 (80-98) fL MCH 29 (27-31) pg MCHC 33 (32-36) % Plt Count 42 L (150-400) K/uL Add Manual Diff Yes Neutrophils % (Manual) 68 H (36-66) % Band Neutrophils % 12 H (5-11) % Lymphocytes % (Manual) 15 L (24-44) % Monocytes % (Manual) 5 (2-6) % Eosinophils % (Manual) (2-4) % Polychromasia PT (9.5-12.0) sec INR (0.80-1.20) APTT (27.0-36.0) sec Fibrinogen (200.0-400.0) mg/dL D-Dimer, Quantitative 6312.98 H (0.0-500.0) ng/mL Sodium (140-148) mmol/L Potassium (3.6-5.2) mmol/L Chloride (100-108) mmol/L Carbon Dioxide (21-32) mmol/L Anion Gap (5.0-14.0) mmol/L BUN (7-18) mg/dL Creatinine (0.8-1.3) mg/dL Est Cr Clr Drug Dosing mL/min Estimated GFR (MDRD) (>60) Glucose (74-106) mg/dL Lactic Acid (0.4-2.0) mmol/L Calcium (8.5-10.1) mg/dL Magnesium (1.8-2.4) mg/dL Total Bilirubin (0.2-1.0) mg/dL AST (15-37) U/L ALT (12-78) U/L Alkaline Phosphatase (46-116) U/L C-Reactive Protein (0.0-0.3) mg/dL Total Protein (6.4-8.2) g/dL Albumin (3.4-5.0) g/dL Globulin (2.3-3.5) g/dL Albumin/Globulin Ratio (1.2-2.2) Procalcitonin ng/mL Urine Color (YELLOW) Urine Appearance (CLEAR) Urine pH (5.0-8.0) Ur Specific [place] (1.008-1.030) Urine Protein (NEGATIVE) mg/dL Urine Glucose (UA) (NEGATIVE) mg/dL Urine Ketones (NEGATIVE) mg/dL Urine Occult Blood (NEGATIVE) Urine Nitrite (NEGATIVE) Urine Bilirubin (NEGATIVE) Urine Urobilinogen (0.2-1.0) EU/dL Ur Leukocyte Esterase (NEGATIVE) Urine RBC (0-5) Urine WBC (0-5) Ur Epithelial Cells Amorphous Sediment Urine Bacteria Urine Mucus Urine Opiates Screen (NEGATIVE) Ur Oxycodone Screen (NEGATIVE) Urine Methadone Screen (NEGATIVE) Ur Propoxyphene Screen (NEGATIVE) Ur Barbiturates Screen (NEGATIVE) Ur Tricyclics Screen (NEGATIVE) Ur Phencyclidine Scrn (NEGATIVE) Ur Amphetamine Screen (NEGATIVE) U Methamphetamines Scrn (NEGATIVE) Urine MDMA Screen (NEGATIVE) U Benzodiazepines Scrn (NEGATIVE) U Cocaine Metab Screen (NEGATIVE) U Marijuana (THC) Screen (NEGATIVE) HIV-1 Ab Rapid Screen Non-reactive (NON-REACT.) Influenza Type A RNA (NEGATIVE) RSV RNA (INAAT) (NEGATIVE) Influenza Type B RNA (NEGATIVE) SARS-CoV-2 RNA (MARIA ISABEL) (NEGATIVE) 10/04/20 10/05/20 10/05/20 Range/Units 16:20 05:01 05:01 WBC 3.3 L (4.5-11.0) K/uL RBC 4.49 (4.30-5.90) M/uL Hgb 13.1 (12.0-15.0) g/dL Hct 39.2 L (40.0-54.0) % MCV 87 (80-98) fL MCH 29 (27-31) pg MCHC 33 (32-36) % Plt Count 36 L (150-400) K/uL Add Manual Diff Yes Neutrophils % (Manual) 66 (36-66) % Band Neutrophils % 14 H (5-11) % Lymphocytes % (Manual) 12 L (24-44) % Monocytes % (Manual) 7 H (2-6) % Eosinophils % (Manual) 1 L (2-4) % Polychromasia PT (9.5-12.0) sec INR (0.80-1.20) APTT (27.0-36.0) sec Fibrinogen (200.0-400.0) mg/dL D-Dimer, Quantitative (0.0-500.0) ng/mL Sodium 135 L (140-148) mmol/L Potassium 4.5 (3.6-5.2) mmol/L Chloride 100 (100-108) mmol/L Carbon Dioxide 28 (21-32) mmol/L Anion Gap 11.5 (5.0-14.0) mmol/L BUN 16 (7-18) mg/dL Creatinine 1.0 (0.8-1.3) mg/dL Est Cr Clr Drug Dosing 106.68 mL/min Estimated GFR (MDRD) > 60 (>60) Glucose 107 H (74-106) mg/dL Lactic Acid 1.2 (0.4-2.0) mmol/L Calcium 8.1 L (8.5-10.1) mg/dL Magnesium 1.9 (1.8-2.4) mg/dL Total Bilirubin 1.0 (0.2-1.0) mg/dL AST 49 H (15-37) U/L ALT 151 H (12-78) U/L Alkaline Phosphatase 246 H (46-116) U/L C-Reactive Protein (0.0-0.3) mg/dL Total Protein 6.0 L (6.4-8.2) g/dL Albumin 2.4 L (3.4-5.0) g/dL Globulin 3.6 H (2.3-3.5) g/dL Albumin/Globulin Ratio 0.7 L (1.2-2.2) Procalcitonin ng/mL Urine Color (YELLOW) Urine Appearance (CLEAR) Urine pH (5.0-8.0) Ur Specific [place] (1.008-1.030) Urine Protein (NEGATIVE) mg/dL Urine Glucose (UA) (NEGATIVE) mg/dL Urine Ketones (NEGATIVE) mg/dL Urine Occult Blood (NEGATIVE) Urine Nitrite (NEGATIVE) Urine Bilirubin (NEGATIVE) Urine Urobilinogen (0.2-1.0) EU/dL Ur Leukocyte Esterase (NEGATIVE) Urine RBC (0-5) Urine WBC (0-5) Ur Epithelial Cells Amorphous Sediment Urine Bacteria Urine Mucus Urine Opiates Screen (NEGATIVE) Ur Oxycodone Screen (NEGATIVE) Urine Methadone Screen (NEGATIVE) Ur Propoxyphene Screen (NEGATIVE) Ur Barbiturates Screen (NEGATIVE) Ur Tricyclics Screen (NEGATIVE) Ur Phencyclidine Scrn (NEGATIVE) Ur Amphetamine Screen (NEGATIVE) U Methamphetamines Scrn (NEGATIVE) Urine MDMA Screen (NEGATIVE) U Benzodiazepines Scrn (NEGATIVE) U Cocaine Metab Screen (NEGATIVE) U Marijuana (THC) Screen (NEGATIVE) HIV-1 Ab Rapid Screen (NON-REACT.) Influenza Type A RNA (NEGATIVE) RSV RNA (INAAT) (NEGATIVE) Influenza Type B RNA (NEGATIVE) SARS-CoV-2 RNA (MARIA ISABEL) (NEGATIVE) [place] Results Last 24 Hours: Microbiology 10/04/20 11:20 Aerobic Blood Culture - Preliminary Blood - Arm, Right NO GROWTH AFTER 1 DAY Anaerobic Blood Culture - Preliminary NO GROWTH AFTER 1 DAY 10/04/20 11:15 Aerobic Blood Culture - Preliminary Blood - Arm, Right NO GROWTH AFTER 1 DAY Anaerobic Blood Culture - Preliminary NO GROWTH AFTER 1 DAY Med Orders - Current: Current Medications Acetaminophen (Acetaminophen 325 Mg Tab) 650 mg PO Q4H PRN PRN Reason: Pain (Mild 1-3)/fever Last Admin: 10/05/20 07:54 Dose: 650 mg Documented by: Hydromorphone HCl (Hydromorphone 1 Mg/Ml Syringe) 1 mg IVPUSH Q3H PRN PRN Reason: Pain Last Admin: 10/05/20 11:54 Dose: 1 mg Documented by: Piperacillin/Tazobactam/ (Dextrose 3.375 gm/ Premix) 50 mls @ 100 mls/hr IV Q6H [facility] Last Admin: 10/05/20 09:56 Dose: 100 mls/hr Documented by: Doxycycline Hyclate 100 mg/ (Sodium Chloride) 100 mls @ 100 mls/hr IV Q12H [facility] Last Admin: 10/05/20 08:50 Dose: 100 mls/hr Documented by: Lactated Ringer's (Ringers, Lactated) 1,000 mls @ 75 mls/hr IV ASDIRECTED [facility] Ondansetron HCl (Ondansetron 4 Mg/2 Ml Sdv) 4 mg IV Q4H PRN PRN Reason: Nausea/Vomiting Polyethylene Glycol (Polyethylene Glycol 3350 Powder 17 Gm Packet) 17 gm PO D AILY PRN PRN Reason: Constipation Discontinued Medications Hydromorphone HCl (Hydromorphone 1 Mg/Ml Syringe) 1 mg IVPUSH Q1H PRN PRN Reason: Pain Last Admin: 10/04/20 14:21 Dose: 1 mg Documented by: Sodium Chloride (Normal Saline) 1,000 mls @ 999 mls/hr IV BOLUS ONE; Protocol Stop: 10/04/20 11:44 Last Admin: 10/04/20 11:06 Dose: 999 mls/hr Documented by: Sodium Chloride (Normal Saline) 100 mls @ 3 mls/sec IV ASDIRECTED [facility] Stop: 10/04/20 11:46 Last Admin: 10/04/20 12:10 Dose: 3 mls/sec Documented by: Sodium Chloride (Normal Saline) 1,000 mls @ 999 mls/hr IV .BOLUS ONE Stop: 10/04/20 13:33 Last Admin: 10/04/20 12:50 Dose: 999 mls/hr Documented by: Lactated Ringer's (Ringers, Lactated) 1,000 mls @ 999 mls/hr IV ASDIRECTED [facility] Stop: 10/04/20 17:01 Piperacillin Sod/Tazobactam (Sod 3.375 gm/ Sodium Chloride) 50 mls @ 100 mls/hr IV Q6H [facility] Last Admin: 10/05/20 04:42 Dose: 100 mls/hr Documented by: Vancomycin HCl 2 gm/ Sodium (Chloride) 500 mls @ 250 mls/hr IV ONETIME ONE Stop: 10/04/20 18:59 Last Admin: 10/04/20 17:25 Dose: 250 mls/hr Documented by: Vancomycin HCl 1.25 gm/ Sodium (Chloride) 250 mls @ 166.667 mls/hr IV Q12H [facility] Last Admin: 10/05/20 05:21 Dose: 166.667 mls/hr Documented by: Lactated Ringer's (Ringers, Lactated) 1,000 mls @ 125 mls/hr IV ASDIRECTED [facility] Last Admin: 10/05/20 05:23 Dose: 125 mls/hr Documented by: Iopamidol (Iopamidol 612 Mg/Ml 500 Ml Multipack Bottle) 123 ml IV ONETIME ONE Stop: 10/04/20 11:37 Last Admin: 10/04/20 12:10 Dose: 123 ml Documented by: Sodium Chloride (Sodium Chloride 0.9% 10 Ml Syringe) 10 ml FLUSH ASDIRECTED PRN PRN Reason: Keep Vein Open Last Admin: 10/04/20 12:10 Dose: 10 ml Documented by: Sodium Chloride (Sodium Chloride 0.9% 10 Ml Sdv) 10 ml FLUSH ONETIME ONE Stop: 10/04/20 11:37 Last Admin: 10/04/20 17:49 Dose: Not Given Documented by: Vancomycin HCl (Vancomycin 1 Gm Sdv) 1 gm IV .PHARMACY TO DOSE [facility] Stop: 10/05/20 08:00 - Exam Quality Assessment: DVT Prophylaxis General: Alert, Oriented, Cooperative, Moderate Distress Lungs: Clear to Auscultation, Normal Respiratory Effort Cardiovascular: Regular Rate, Regular Rhythm, No Murmurs GI/Abdominal Exam: Soft, Non-Tender, No Organomegaly, No Distention Extremities: Non-Tender, No Pedal Edema - Patient Data Lab Results Last 24 hrs: Laboratory Results - last 24 hr 10/04/20 10/04/20 10/04/20 Range/Units 10:46 10:46 12:08 WBC (4.5-11.0) K/uL RBC (4.30-5.90) M/uL Hgb (12.0-15.0) g/dL Hct (40.0-54.0) % MCV (80-98) fL MCH (27-31) pg MCHC (32-36) % Plt Count (150-400) K/uL Add Manual Diff Neutrophils % (Manual) (36-66) % Band Neutrophils % (5-11) % Lymphocytes % (Manual) (24-44) % Monocytes % (Manual) (2-6) % Eosinophils % (Manual) (2-4) % Polychromasia PT (9.5-12.0) sec INR (0.80-1.20) APTT (27.0-36.0) sec Fibrinogen (200.0-400.0) mg/dL D-Dimer, Quantitative (0.0-500.0) ng/mL Sodium (140-148) mmol/L Potassium (3.6-5.2) mmol/L Chloride (100-108) mmol/L Carbon Dioxide (21-32) mmol/L Anion Gap (5.0-14.0) mmol/L BUN (7-18) mg/dL Creatinine (0.8-1.3) mg/dL Est Cr Clr Drug Dosing mL/min Estimated GFR (MDRD) (>60) Glucose (74-106) mg/dL Lactic Acid (0.4-2.0) mmol/L Calcium (8.5-10.1) mg/dL Magnesium (1.8-2.4) mg/dL Total Bilirubin (0.2-1.0) mg/dL AST (15-37) U/L ALT (12-78) U/L Alkaline Phosphatase (46-116) U/L C-Reactive Protein 23.72 H (0.0-0.3) mg/dL Total Protein (6.4-8.2) g/dL Albumin (3.4-5.0) g/dL Globulin (2.3-3.5) g/dL Albumin/Globulin Ratio (1.2-2.2) Procalcitonin 3.70 H* ng/mL Urine Color (YELLOW) Urine Appearance (CLEAR) Urine pH (5.0-8.0) Ur Specific [place] (1.008-1.030) Urine Protein (NEGATIVE) mg/dL Urine Glucose (UA) (NEGATIVE) mg/dL Urine Ketones (NEGATIVE) mg/dL Urine Occult Blood (NEGATIVE) Urine Nitrite (NEGATIVE) Urine Bilirubin (NEGATIVE) Urine Urobilinogen (0.2-1.0) EU/dL Ur Leukocyte Esterase (NEGATIVE) Urine RBC (0-5) Urine WBC (0-5) Ur Epithelial Cells Amorphous Sediment Urine Bacteria Urine Mucus Urine Opiates Screen (NEGATIVE) Ur Oxycodone Screen (NEGATIVE) Urine Methadone Screen (NEGATIVE) Ur Propoxyphene Screen (NEGATIVE) Ur Barbiturates Screen (NEGATIVE) Ur Tricyclics Screen (NEGATIVE) Ur Phencyclidine Scrn (NEGATIVE) Ur Amphetamine Screen (NEGATIVE) U Methamphetamines Scrn (NEGATIVE) Urine MDMA Screen (NEGATIVE) U Benzodiazepines Scrn (NEGATIVE) U Cocaine Metab Screen (NEGATIVE) U Marijuana (THC) Screen (NEGATIVE) HIV-1 Ab Rapid Screen (NON-REACT.) Influenza Type A RNA Negative (NEGATIVE) RSV RNA (INAAT) Negative (NEGATIVE) Influenza Type B RNA Negative (NEGATIVE) SARS-CoV-2 RNA (MARIA ISABEL) Negative (NEGATIVE) 10/04/20 10/04/20 10/04/20 Range/Units 13:01 13:01 16:20 WBC (4.5-11.0) K/uL RBC (4.30-5.90) M/uL Hgb (12.0-15.0) g/dL Hct (40.0-54.0) % MCV (80-98) fL MCH (27-31) pg MCHC (32-36) % Plt Count (150-400) K/uL Add Manual Diff Neutrophils % (Manual) (36-66) % Band Neutrophils % (5-11) % Lymphocytes % (Manual) (24-44) % Monocytes % (Manual) (2-6) % Eosinophils % (Manual) (2-4) % Polychromasia PT 10.3 (9.5-12.0) sec INR 0.94 (0.80-1.20) APTT 36.4 H (27.0-36.0) sec Fibrinogen 573.1 H (200.0-400.0) mg/dL D-Dimer, Quantitative (0.0-500.0) ng/mL Sodium (140-148) mmol/L Potassium (3.6-5.2) mmol/L Chloride (100-108) mmol/L Carbon Dioxide (21-32) mmol/L Anion Gap (5.0-14.0) mmol/L BUN (7-18) mg/dL Creatinine (0.8-1.3) mg/dL Est Cr Clr Drug Dosing mL/min Estimated GFR (MDRD) (>60) Glucose (74-106) mg/dL Lactic Acid (0.4-2.0) mmol/L Calcium (8.5-10.1) mg/dL Magnesium (1.8-2.4) mg/dL Total Bilirubin (0.2-1.0) mg/dL AST (15-37) U/L ALT (12-78) U/L Alkaline Phosphatase (46-116) U/L C-Reactive Protein (0.0-0.3) mg/dL Total Protein (6.4-8.2) g/dL Albumin (3.4-5.0) g/dL Globulin (2.3-3.5) g/dL Albumin/Globulin Ratio (1.2-2.2) Procalcitonin ng/mL Urine Color Yellow (YELLOW) Urine Appearance Clear (CLEAR) Urine pH 6.5 (5.0-8.0) Ur Specific [place] 1.015 (1.008-1.030) Urine Protein 30 H (NEGATIVE) mg/dL Urine Glucose (UA) Negative (NEGATIVE) mg/dL Urine Ketones Negative (NEGATIVE) mg/dL Urine Occult Blood Negative (NEGATIVE) Urine Nitrite Negative (NEGATIVE) Urine Bilirubin Negative (NEGATIVE) Urine Urobilinogen 2.0 H (0.2-1.0) EU/dL Ur Leukocyte Esterase Negative (NEGATIVE) Urine RBC 0-5 (0-5) Urine WBC 0-5 (0-5) Ur Epithelial Cells Rare Amorphous Sediment Not seen Urine Bacteria Not seen Urine Mucus Not seen Urine Opiates Screen Negative (NEGATIVE) Ur Oxycodone Screen Negative (NEGATIVE) Urine Methadone Screen Negative (NEGATIVE) Ur Propoxyphene Screen Negative (NEGATIVE) Ur Barbiturates Screen Negative (NEGATIVE) Ur Tricyclics Screen Negative (NEGATIVE) Ur Phencyclidine Scrn Negative (NEGATIVE) Ur Amphetamine Screen Presumptive positive H (NEGATIVE) U Methamphetamines Scrn Presumptive positive H (NEGATIVE) Urine MDMA Screen Negative (NEGATIVE) U Benzodiazepines Scrn Negative (NEGATIVE) U Cocaine Metab Screen Negative (NEGATIVE) U Marijuana (THC) Screen Presumptive positive H (NEGATIVE) HIV-1 Ab Rapid Screen (NON-REACT.) Influenza Type A RNA (NEGATIVE) RSV RNA (INAAT) (NEGATIVE) Influenza Type B RNA (NEGATIVE) SARS-CoV-2 RNA (MARIA ISABEL) (NEGATIVE) 10/04/20 10/04/20 10/04/20 Range/Units 16:20 16:20 16:20 WBC 3.1 L (4.5-11.0) K/uL RBC 4.85 (4.30-5.90) M/uL Hgb 13.9 (12.0-15.0) g/dL Hct 41.8 (40.0-54.0) % MCV 86 (80-98) fL MCH 29 (27-31) pg MCHC 33 (32-36) % Plt Count 42 L (150-400) K/uL Add Manual Diff Yes Neutrophils % (Manual) 68 H (36-66) % Band Neutrophils % 12 H (5-11) % Lymphocytes % (Manual) 15 L (24-44) % Monocytes % (Manual) 5 (2-6) % Eosinophils % (Manual) (2-4) % Polychromasia PT (9.5-12.0) sec INR (0.80-1.20) APTT (27.0-36.0) sec Fibrinogen (200.0-400.0) mg/dL D-Dimer, Quantitative 6312.98 H (0.0-500.0) ng/mL Sodium (140-148) mmol/L Potassium (3.6-5.2) mmol/L Chloride (100-108) mmol/L Carbon Dioxide (21-32) mmol/L Anion Gap (5.0-14.0) mmol/L BUN (7-18) mg/dL Creatinine (0.8-1.3) mg/dL Est Cr Clr Drug Dosing mL/min Estimated GFR (MDRD) (>60) Glucose (74-106) mg/dL Lactic Acid (0.4-2.0) mmol/L Calcium (8.5-10.1) mg/dL Magnesium (1.8-2.4) mg/dL Total Bilirubin (0.2-1.0) mg/dL AST (15-37) U/L ALT (12-78) U/L Alkaline Phosphatase (46-116) U/L C-Reactive Protein (0.0-0.3) mg/dL Total Protein (6.4-8.2) g/dL Albumin (3.4-5.0) g/dL Globulin (2.3-3.5) g/dL Albumin/Globulin Ratio (1.2-2.2) Procalcitonin ng/mL Urine Color (YELLOW) Urine Appearance (CLEAR) Urine pH (5.0-8.0) Ur Specific [place] (1.008-1.030) Urine Protein (NEGATIVE) mg/dL Urine Glucose (UA) (NEGATIVE) mg/dL Urine Ketones (NEGATIVE) mg/dL Urine Occult Blood (NEGATIVE) Urine Nitrite (NEGATIVE) Urine Bilirubin (NEGATIVE) Urine Urobilinogen (0.2-1.0) EU/dL Ur Leukocyte Esterase (NEGATIVE) Urine RBC (0-5) Urine WBC (0-5) Ur Epithelial Cells Amorphous Sediment Urine Bacteria Urine Mucus Urine Opiates Screen (NEGATIVE) Ur Oxycodone Screen (NEGATIVE) Urine Methadone Screen (NEGATIVE) Ur Propoxyphene Screen (NEGATIVE) Ur Barbiturates Screen (NEGATIVE) Ur Tricyclics Screen (NEGATIVE) Ur Phencyclidine Scrn (NEGATIVE) Ur Amphetamine Screen (NEGATIVE) U Methamphetamines Scrn (NEGATIVE) Urine MDMA Screen (NEGATIVE) U Benzodiazepines Scrn (NEGATIVE) U Cocaine Metab Screen (NEGATIVE) U Marijuana (THC) Screen (NEGATIVE) HIV-1 Ab Rapid Screen Non-reactive (NON-REACT.) Influenza Type A RNA (NEGATIVE) RSV RNA (INAAT) (NEGATIVE) Influenza Type B RNA (NEGATIVE) SARS-CoV-2 RNA (MARIA ISABEL) (NEGATIVE) 05/10/05/20 10/05/20 Range/Units 16:20 05:01 05:01 WBC 3.3 L (4.5-11.0) K/uL RBC 4.49 (4.30-5.90) M/uL Hgb 13.1 (12.0-15.0) g/dL Hct 39.2 L (40.0-54.0) % MCV 87 (80-98) fL MCH 29 (27-31) pg MCHC 33 (32-36) % Plt Count 36 L (150-400) K/uL Add Manual Diff Yes Neutrophils % (Manual) 66 (36-66) % Band Neutrophils % 14 H (5-11) % Lymphocytes % (Manual) 12 L (24-44) % Monocytes % (Manual) 7 H (2-6) % Eosinophils % (Manual) 1 L (2-4) % Polychromasia PT (9.5-12.0) sec INR (0.80-1.20) APTT (27.0-36.0) sec Fibrinogen (200.0-400.0) mg/dL D-Dimer, Quantitative (0.0-500.0) ng/mL Sodium 135 L (140-148) mmol/L Potassium 4.5 (3.6-5.2) mmol/L Chloride 100 (100-108) mmol/L Carbon Dioxide 28 (21-32) mmol/L Anion Gap 11.5 (5.0-14.0) mmol/L BUN 16 (7-18) mg/dL Creatinine 1.0 (0.8-1.3) mg/dL Est Cr Clr Drug Dosing 106.68 mL/min Estimated GFR (MDRD) > 60 (>60) Glucose 107 H (74-106) mg/dL Lactic Acid 1.2 (0.4-2.0) mmol/L Calcium 8.1 L (8.5-10.1) mg/dL Magnesium 1.9 (1.8-2.4) mg/dL Total Bilirubin 1.0 (0.2-1.0) mg/dL AST 49 H (15-37) U/L ALT 151 H (12-78) U/L Alkaline Phosphatase 246 H (46-116) U/L C-Reactive Protein (0.0-0.3) mg/dL Total Protein 6.0 L (6.4-8.2) g/dL Albumin 2.4 L (3.4-5.0) g/dL Globulin 3.6 H (2.3-3.5) g/dL Albumin/Globulin Ratio 0.7 L (1.2-2.2) Procalcitonin ng/mL Urine Color (YELLOW) Urine Appearance (CLEAR) Urine pH (5.0-8.0) Ur Specific [place] (1.008-1.030) Urine Protein (NEGATIVE) mg/dL Urine Glucose (UA) (NEGATIVE) mg/dL Urine Ketones (NEGATIVE) mg/dL Urine Occult Blood (NEGATIVE) Urine Nitrite (NEGATIVE) Urine Bilirubin (NEGATIVE) Urine Urobilinogen (0.2-1.0) EU/dL Ur Leukocyte Esterase (NEGATIVE) Urine RBC (0-5) Urine WBC (0-5) Ur Epithelial Cells Amorphous Sediment Urine Bacteria Urine Mucus Urine Opiates Screen (NEGATIVE) Ur Oxycodone Screen (NEGATIVE) Urine Methadone Screen (NEGATIVE) Ur Propoxyphene Screen (NEGATIVE) Ur Barbiturates Screen (NEGATIVE) Ur Tricyclics Screen (NEGATIVE) Ur Phencyclidine Scrn (NEGATIVE) Ur Amphetamine Screen (NEGATIVE) U Methamphetamines Scrn (NEGATIVE) Urine MDMA Screen (NEGATIVE) U Benzodiazepines Scrn (NEGATIVE) U Cocaine Metab Screen (NEGATIVE) U Marijuana (THC) Screen (NEGATIVE) HIV-1 Ab Rapid Screen (NON-REACT.) Influenza Type A RNA (NEGATIVE) RSV RNA (INAAT) (NEGATIVE) Influenza Type B RNA (NEGATIVE) SARS-CoV-2 RNA (MARIA ISABEL) (NEGATIVE) Result Diagrams: 10/05/20 05:01 10/05/20 05:01 [place] Results Last 24 hrs: Microbiology 10/04/20 11:20 Aerobic Blood Culture - Preliminary Blood - Arm, Right NO GROWTH AFTER 1 DAY Anaerobic Blood Culture - Preliminary NO GROWTH AFTER 1 DAY 10/04/20 11:15 Aerobic Blood Culture - Preliminary Blood - Arm, Right NO GROWTH AFTER 1 DAY Anaerobic Blood Culture - Preliminary NO GROWTH AFTER 1 DAY Sepsis Event Note - Evaluation Sepsis Screening Result: Severe Sepsis Risk - Focused Exam Vital Signs: Vital Signs Temp Pulse Resp BP Pulse Ox 10/05/20 11:00 100.2 F 108 H 13 137/66 97 10/05/20 10:00 97.5 F 108 H 23 H 137/78 97 10/05/20 08:56 97.8 F 109 H 16 120/76 94 L 10/05/20 07:51 100.7 F H 107 H 25 H 128/62 94 L 10/05/20 06:00 98.5 F 101 H 19 128/71 10/05/20 05:00 20 117/69 94 L 10/05/20 04:00 98.5 F 19 111/69 10/05/20 03:00 18 113/70 95 10/05/20 02:00 99 F 18 106/67 96 10/05/20 01:00 18 94/61 98 - Problem List Review Problem List Initiated/Reviewed/Updated: Yes - My Orders Last 24 Hours: My Active Orders 10/04/20 Lunch Regular Diet [DIET] 10/04/20 16:05 Resuscitation Status Routine 10/04/20 16:56 Acetaminophen [TylenoL] 650 mg PO Q4H PRN HYDROmorphone [Dilaudid] 1 mg IVPUSH Q3H PRN Ondansetron [Zofran] 4 mg IV Q4H PRN polyethylene glycoL 3350 [MiraLAX] 17 gm PO DAILY PRN 10/04/20 16:56 Patient Status [ADT] Routine Ambulate [RC] QID Cardiac Monitoring [RC] Q6H Height and Weight [RC] DAILY Intake and Output [RC] QSHIFT Notify Provider Vital Signs [RC] ASDIRECTED Oxygen Therapy [RC] PRN Pulse Oximetry [RC] CONTINUOUS Up to Chair [RC] QID Vital Signs [RC] Q1H Sequential Compression Device [OM.PC] Per Unit Routine VTE Pharmacological Contraindications [AST] Per Unit Routine 10/05/20 08:30 Doxycycline [Vibramycin] 100 mg Sodium Chloride 0.9% [Normal Saline] 100 ml IV Q12H 10/05/20 10:00 Piperacillin/Tazobactam/Dext [Zosyn in Dextrose Iso-Osmotic 3.375 GM/50 ML] 3.375 gm Premix Bag 1 bag IV Q6H 10/05/20 12:22 HUMAN GRANULOCYTIC ROSCOE-HGE Stat LYME, TOTAL AB TEST/REFLEX Stat 10/05/20 12:30 Lactated Ringers [Ringers, Lactated] 1,000 ml IV ASDIRECTED 10/06/20 05:00 CBC WITH AUTO DIFF [HEME] Timed COMPREHENSIVE METABOLIC PN,CMP [CHEM] Timed 10/06/20 16:00 VANCOMYCIN TROUGH [CHEM] Timed - Plan Plan:: ASSESSMENT AND PLAN PROBABLE ANAPLASMOSIS-initial set of blood cultures negative after 1 day. Other findings would be very consistent with anaplasmosis -Serology for tick diseases pending -Blood cultures pending -Discontinue vancomycin -Empiric IV antibiotic therapy; doxycycline and Zosyn -Nausea and pain medication as needed SEVERE THROMBOCYTOPENIA-likely secondary to underlying infection -Recheck platelet count in a.m. HISTORY OF IV DRUG USE-he reports recent use of IV fentanyl and methamphetamine -Monitor for withdrawal MAINTENANCE ISSUES -DVT prophylaxis; SCUDs -GI prophylaxis; not indicated -Bob catheter; not indicated -Nutrition; regular diet -Nicotine dependence; nicotine patch and nicotine gum CODE STATUS-FULL CODE ADMISSION STATUS-patient will be admitted to inpatient status, expect at least a 2 night hospital stay for evaluation and management of problems as outlined above. At the time of this admission I do not reasonably expected evaluation and management of this problem will require more than a 96 hour hospital stay. DISPOSITION-anticipate discharge to home after the hospital stay.
[2020-10-06] MEDS: Acetaminophen 325 MG Tab PO PRN (01:20)
[2020-10-06] MEDS: HYDROmorphone 1 MG/ML Syringe IVPUSH PRN ×6 (01:24→22:04)
[2020-10-06] MEDS: Piperacillin/Tazobactam/Dext 3.375 GM in Premix Bag 1 BAG IV SCH ×3 (04:21→16:41)
[2020-10-06] MEDS: Doxycycline 100 MG in Sodium Chloride 0.9% 100 ML IV SCH ×2 (08:04→20:04)
--- NOTE | 2020-10-06 09:07 | PCM.PN ---
- General Info Date of Service: 10/06/20 Subjective Update: There were no acute events overnight. Patient did not have any fevers overnight. He reports ongoing headache though this has improved some since yesterday. Still has diffuse myalgias but these are a little bit better. No complaints of nausea and his appetite has been improving. Blood cultures remain negative. Still has mild leukopenia and thrombocytopenia. Functional Status: Reports: Tolerating Diet - Review of Systems General: Reports: Night Sweats. Denies: Fever Pulmonary: Reports: Shortness of Breath, Pleuritic Chest Pain Musculoskeletal: Reports: Other (diffuse myalgias) - Patient Data Vitals - Most Recent: Last Vital Signs Temp 36.4 C 10/06/20 08:00 Pulse 78 10/06/20 08:00 Resp 14 10/06/20 08:00 BP 103/67 10/06/20 08:00 Pulse Ox 99 10/06/20 08:00 Weight - Most Recent: 81.647 kg I&O - Last 24 Hours: Intake & Output 10/05/20 10/06/20 10/06/20 22:59 06:59 14:59 Intake Total 1240 900 Output Total 800 400 Balance 440 500 Lab Results Last 24 Hours: Laboratory Results - last 24 hr 10/06/20 10/06/20 Range/Units 06:00 06:00 WBC 3.6 L (4.5-11.0) K/uL RBC 4.76 (4.30-5.90) M/uL Hgb 13.9 (12.0-15.0) g/dL Hct 40.8 (40.0-54.0) % MCV 86 (80-98) fL MCH 29 (27-31) pg MCHC 34 (32-36) % Plt Count 29 L* (150-400) K/uL Add Manual Diff Yes Neutrophils % (Manual) 72 H (36-66) % Band Neutrophils % 4 L (5-11) % Lymphocytes % (Manual) 17 L (24-44) % Monocytes % (Manual) 7 H (2-6) % Sodium 140 (140-148) mmol/L Potassium 4.5 (3.6-5.2) mmol/L Chloride 106 (100-108) mmol/L Carbon Dioxide 25 (21-32) mmol/L Anion Gap 9.3 (5.0-14.0) mmol/L BUN 18 (7-18) mg/dL Creatinine 0.7 L (0.8-1.3) mg/dL Est Cr Clr Drug Dosing 152.39 mL/min Estimated GFR (MDRD) > 60 (>60) Glucose 94 (74-106) mg/dL Calcium 8.1 L (8.5-10.1) mg/dL Total Bilirubin 0.8 (0.2-1.0) mg/dL AST 52 H (15-37) U/L ALT 113 H (12-78) U/L Alkaline Phosphatase 254 H (46-116) U/L Total Protein 5.7 L (6.4-8.2) g/dL Albumin 2.0 L (3.4-5.0) g/dL Globulin 3.7 H (2.3-3.5) g/dL Albumin/Globulin Ratio 0.5 L (1.2-2.2) [facility] Results Last 24 Hours: Microbiology 10/04/20 11:20 Aerobic Blood Culture - Preliminary Blood - Arm, Right NO GROWTH AFTER 1 DAY Anaerobic Blood Culture - Preliminary NO GROWTH AFTER 1 DAY 10/04/20 11:15 Aerobic Blood Culture - Preliminary Blood - Arm, Right NO GROWTH AFTER 1 DAY Anaerobic Blood Culture - Preliminary NO GROWTH AFTER 1 DAY Med Orders - Current: Current Medications Acetaminophen (Acetaminophen 325 Mg Tab) 650 mg PO Q4H PRN PRN Reason: Pain (Mild 1-3)/fever Last Admin: 10/06/20 01:20 Dose: 650 mg Documented by: Hydromorphone HCl (Hydromorphone 1 Mg/Ml Syringe) 1 mg IVPUSH Q3H PRN PRN Reason: Pain Last Admin: 10/06/20 06:10 Dose: 1 mg Documented by: Piperacillin/Tazobactam/ (Dextrose 3.375 gm/ Premix) 50 mls @ 100 mls/hr IV Q6H ROD Last Admin: 10/06/20 04:21 Dose: 100 mls/hr Documented by: Doxycycline Hyclate 100 mg/ (Sodium Chloride) 100 mls @ 100 mls/hr IV Q12H ROD Last Admin: 10/06/20 08:04 Dose: 100 mls/hr Documented by: Ondansetron HCl (Ondansetron 4 Mg/2 Ml Sdv) 4 mg IV Q4H PRN PRN Reason: Nausea/Vomiting Polyethylene Glycol (Polyethylene Glycol 3350 Powder 17 Gm Packet) 17 gm PO DAILY PRN PRN Reason: Constipation Discontinued Medications Hydromorphone HCl (Hydromorphone 1 Mg/Ml Syringe) 1 mg IVPUSH Q1H PRN PRN Reason: Pain Last Admin: 10/04/20 14:21 Dose: 1 mg Documented by: Sodium Chloride (Normal Saline) 1,000 mls @ 999 mls/hr IV BOLUS ONE; Protocol Stop: 10/04/20 11:44 Last Admin: 10/04/20 11:06 Dose: 999 mls/hr Documented by: Sodium Chloride (Normal Saline) 100 mls @ 3 mls/sec IV ASDIRECTED [facility] Stop: 10/04/20 11:46 Last Admin: 10/04/20 12:10 Dose: 3 mls/sec Documented by: Sodium Chloride (Normal Saline) 1,000 mls @ 999 mls/hr IV .BOLUS ONE Stop: 10/04/20 13:33 Last Admin: 10/04/20 12:50 Dose: 999 mls/hr Documented by: Lactated Ringer's (Ringers, Lactated) 1,000 mls @ 999 mls/hr IV ASDIRECTED [facility] Stop: 10/04/20 17:01 Piperacillin Sod/Tazobactam (Sod 3.375 gm/ Sodium Chloride) 50 mls @ 100 mls/hr IV Q6H [facility] Last Admin: 10/05/20 04:42 Dose: 100 mls/hr Documented by: Vancomycin HCl 2 gm/ Sodium (Chloride) 500 mls @ 250 mls/hr IV ONETIME ONE Stop: 10/04/20 18:59 Last Admin: 10/04/20 17:25 Dose: 250 mls/hr Documented by: Vancomycin HCl 1.25 gm/ Sodium (Chloride) 250 mls @ 166.667 mls/hr IV Q12H [facility] Last Admin: 10/05/20 05:21 Dose: 166.667 mls/hr Documented by: Lactated Ringer's (Ringers, Lactated) 1,000 mls @ 125 mls/hr IV ASDIRECTED [facility] Last Admin: 10/05/20 05:23 Dose: 125 mls/hr Documented by: Lactated Ringer's (Ringers, Lactated) 1,000 mls @ 75 mls/hr IV ASDIRECTED ROD Last Admin: 10/05/20 15:15 Dose: 75 mls/hr Documented by: Iopamidol (Iopamidol 612 Mg/Ml 500 Ml Multipack Bottle) 123 ml IV ONETIME ONE Stop: 10/04/20 11:37 Last Admin: 10/04/20 12:10 Dose: 123 ml Documented by: Sodium Chloride (Sodium Chloride 0.9% 10 Ml Syringe) 10 ml FLUSH ASDIRECTED PRN PRN Reason: Keep Vein Open Last Admin: 10/04/20 12:10 Dose: 10 ml Documented by: Sodium Chloride (Sodium Chloride 0.9% 10 Ml Sdv) 10 ml FLUSH ONETIME ONE Stop: 10/04/20 11:37 Last Admin: 10/04/20 17:49 Dose: Not Given Documented by: Vancomycin HCl (Vancomycin 1 Gm Sdv) 1 gm IV .PHARMACY TO DOSE ROD Stop: 10/05/20 08:00 - Exam Quality Assessment: No: Supplemental Oxygen General: Alert, Oriented, Cooperative, No Acute Distress Lungs: Clear to Auscultation, Normal Respiratory Effort Cardiovascular: Regular Rate, Regular Rhythm, No Murmurs GI/Abdominal Exam: Soft, No Distention Extremities: No Pedal Edema. No: Increased Warmth Skin: Warm, Dry Psy/Mental Status: Alert, Normal Affect - Patient Data Lab Results Last 24 hrs: Laboratory Results - last 24 hr 10/06/20 10/06/20 Range/Units 06:00 06:00 WBC 3.6 L (4.5-11.0) K/uL RBC 4.76 (4.30-5.90) M/uL Hgb 13.9 (12.0-15.0) g/dL Hct 40.8 (40.0-54.0) % MCV 86 (80-98) fL MCH 29 (27-31) pg MCHC 34 (32-36) % Plt Count 29 L* (150-400) K/uL Add Manual Diff Yes Neutrophils % (Manual) 72 H (36-66) % Band Neutrophils % 4 L (5-11) % Lymphocytes % (Manual) 17 L (24-44) % Monocytes % (Manual) 7 H (2-6) % Sodium 140 (140-148) mmol/L Potassium 4.5 (3.6-5.2) mmol/L Chloride 106 (100-108) mmol/L Carbon Dioxide 25 (21-32) mmol/L Anion Gap 9.3 (5.0-14.0) mmol/L BUN 18 (7-18) mg/dL Creatinine 0.7 L (0.8-1.3) mg/dL Est Cr Clr Drug Dosing 152.39 mL/min Estimated GFR (MDRD) > 60 (>60) Glucose 94 (74-106) mg/dL Calcium 8.1 L (8.5-10.1) mg/dL Total Bilirubin 0.8 (0.2-1.0) mg/dL AST 52 H (15-37) U/L ALT 113 H (12-78) U/L Alkaline Phosphatase 254 H (46-116) U/L Total Protein 5.7 L (6.4-8.2) g/dL Albumin 2.0 L (3.4-5.0) g/dL Globulin 3.7 H (2.3-3.5) g/dL Albumin/Globulin Ratio 0.5 L (1.2-2.2) Result Diagrams: 10/06/20 06:00 10/06/20 06:00 [facility] Results Last 24 hrs: Microbiology 10/04/20 11:20 Aerobic Blood Culture - Preliminary Blood - Arm, Right NO GROWTH AFTER 1 DAY Anaerobic Blood Culture - Preliminary NO GROWTH AFTER 1 DAY 10/04/20 11:15 Aerobic Blood Culture - Preliminary Blood - Arm, Right NO GROWTH AFTER 1 DAY Anaerobic Blood Culture - Preliminary NO GROWTH AFTER 1 DAY Sepsis Event Note - Evaluation Sepsis Screening Result: No Definite Risk - Focused Exam Vital Signs: Vital Signs Temp Pulse Resp BP Pulse Ox 10/06/20 08:00 36.4 C 78 14 103/67 99 10/06/20 04:00 36.6 C 18 118/68 97 10/06/20 00:00 90 15 113/66 97 - Problem List Review Problem List Initiated/Reviewed/Updated: Yes - My Orders Last 24 Hours: My Active Orders 10/06/20 09:06 Discontinue Telemetry Monitoring [Cardiac Monitoring Discontinue] [RC] Click to Edit 10/07/20 05:00 CBC W/O DIFF,HEMOGRAM [HEME] Timed (1) COMPREHENSIVE METABOLIC PN,CMP [CHEM] Timed CRP [C-REACTIVE PROTEIN] [CHEM] Timed - Plan Plan:: ASSESSMENT AND PLAN PROBABLE ANAPLASMOSIS-history and laboratory studies fit. Titers are pending. Clinically feeling a little better today. There was some concern for endocarditis but cultures remain negative making this less likely. -Serology for tick diseases pending -Blood cultures pending -Continue doxycycline -Discontinue Pip/Tazo -Nausea and pain medication as needed SEVERE THROMBOCYTOPENIA-likely secondary to underlying infection -Recheck platelet count in a.m. HISTORY OF IV DRUG USE-he reports recent use of IV fentanyl and methamphetamine. He is interested in treatment. No significant evidence for withdrawal so far. -Monitor for withdrawal -Outpatient rule 25 and treatment TOBACCO DEPENDENCE- -encourage cessation MAINTENANCE ISSUES -DVT prophylaxis; SCUDs -GI prophylaxis; not indicated -Bob catheter; not indicated -Nutrition; regular diet DISPOSITION-anticipate discharge to home after the hospital stay. Endy Morgan MD
--- NOTE | 2020-10-06 10:08 | CRLCR ---
Indication: Sepsis. Diaphoresis. Technique: Chest 2 views Comparison: None Findings: Cardiovascular and mediastinum: Heart size and vasculature are normal in caliber and appearance. Lungs and pleural spaces: Lungs are clear. No sign of infiltrate or mass. No sign of pleural effusion. No pneumothorax. Bones and soft tissues: No significant findings. Impression: Negative chest. No sign of pneumonia. Dictated by Thomas Rodriges MD @ 10/06/2020 10:06:[address] Thomas Rodriges @ Oct 06 2020 10:06AM
[2020-10-06] MEDS: Ketorolac 30 MG/ML SDV IVPUSH PRN (13:07)
[2020-10-07] MEDS: Ketorolac 30 MG/ML SDV IVPUSH PRN ×3 (00:36→17:00)
[2020-10-07] MEDS: HYDROmorphone 1 MG/ML Syringe IVPUSH PRN ×3 (04:54→14:20)
[2020-10-07] MEDS: Doxycycline 100 MG in Sodium Chloride 0.9% 100 ML IV SCH (09:09)
[2020-10-07] MEDS ORDERED: methylPREDNISolone Sodium Succinate 125 MG/2 ML SDV IVPUSH ONE (10:01)
--- NOTE | 2020-10-07 10:04 | PCM.PN ---
- General Info Date of Service: 10/07/20 Subjective Update: There were no acute events overnight. Patient did not have any fevers. He continues to report diffuse myalgias and says he hurts all over the place. He describes ongoing pleuritic pain with deep inspiration. He has some mild generalized abdominal pain but no significant nausea. He is very tired and wants to sleep all day. No vomiting. Blood cultures remain negative. Vital signs have been stable. - Patient Data Vitals - Most Recent: Last Vital Signs Temp 36.4 C 10/07/20 08:00 Pulse 80 10/07/20 08:00 Resp 20 10/07/20 08:00 BP 102/58 L 10/07/20 08:00 Pulse Ox 99 10/07/20 08:00 Weight - Most Recent: 81.647 kg I&O - Last 24 Hours: Intake & Output 10/06/20 10/07/20 10/07/20 22:59 06:59 14:59 Intake Total 500 Balance 500 Lab Results Last 24 Hours: Laboratory Results - last 24 hr 10/07/20 10/07/20 Range/Units 05:30 05:30 WBC 3.8 L (4.5-11.0) K/uL RBC 4.53 (4.30-5.90) M/uL Hgb 13.0 (12.0-15.0) g/dL Hct 39.4 L (40.0-54.0) % MCV 87 (80-98) fL MCH 29 (27-31) pg MCHC 33 (32-36) % Plt Count 65 L (150-400) K/uL Sodium 142 (140-148) mmol/L Potassium 3.6 (3.6-5.2) mmol/L Chloride 108 (100-108) mmol/L Carbon Dioxide 25 (21-32) mmol/L Anion Gap 12.6 (5.0-14.0) mmol/L BUN 22 H (7-18) mg/dL Creatinine 0.7 L (0.8-1.3) mg/dL Est Cr Clr Drug Dosing 151.77 mL/min Estimated GFR (MDRD) > 60 (>60) Glucose 87 (74-106) mg/dL Calcium 7.9 L (8.5-10.1) mg/dL Total Bilirubin 0.5 (0.2-1.0) mg/dL AST 49 H (15-37) U/L ALT 105 H (12-78) U/L Alkaline Phosphatase 277 H (46-116) U/L C-Reactive Protein 7.54 H (0.0-0.3) mg/dL Total Protein 5.5 L (6.4-8.2) g/dL Albumin 2.0 L (3.4-5.0) g/dL Globulin 3.5 (2.3-3.5) g/dL Albumin/Globulin Ratio 0.6 L (1.2-2.2) [facility] Results Last 24 Hours: Microbiology 10/04/20 11:20 Aerobic Blood Culture - Preliminary Blood - Arm, Right NO GROWTH AFTER 2 DAYS Anaerobic Blood Culture - Preliminary NO GROWTH AFTER 2 DAYS 10/04/20 11:15 Aerobic Blood Culture - Preliminary Blood - Arm, Right NO GROWTH AFTER 2 DAYS Anaerobic Blood Culture - Preliminary NO GROWTH AFTER 2 DAYS Med Orders - Current: Current Medications Acetaminophen (Acetaminophen 325 Mg Tab) 650 mg PO Q4H PRN PRN Reason: Pain (Mild 1-3)/fever Last Admin: 10/06/20 01:20 Dose: 650 mg Documented by: Hydromorphone HCl (Hydromorphone 1 Mg/Ml Syringe) 1 mg IVPUSH Q3H PRN PRN Reason: Pain (severe 7-10) Last Admin: 10/07/20 09:17 Dose: 1 mg Documented by: Doxycycline Hyclate 100 mg/ (Sodium Chloride) 100 mls @ 100 mls/hr IV Q12H ROD Last Admin: 10/07/20 09:09 Dose: 100 mls/hr Documented by: Ketorolac Tromethamine (Ketorolac 30 Mg/Ml Sdv) 30 mg IVPUSH Q6H PRN PRN Reason: Pain (moderate 4-6) Stop: 10/11/20 09:28 Last Admin: 10/07/20 00:36 Dose: 30 mg Documented by: Methylprednisolone Sodium Succinate (Methylprednisolone Sodium Succinate 125 Mg/2 Ml Sdv) 125 mg IVPUSH ONETIME ONE Stop: 10/07/20 10:02 Ondansetron HCl (Ondansetron 4 Mg/2 Ml Sdv) 4 mg IV Q4H PRN PRN Reason: Nausea/Vomiting Polyethylene Glycol (Polyethylene Glycol 3350 Powder 17 Gm Packet) 17 gm PO DAILY PRN PRN Reason: Constipation Discontinued Medications Hydromorphone HCl (Hydromorphone 1 Mg/Ml Syringe) 1 mg IVPUSH Q1H PRN PRN Reason: Pain Last Admin: 10/04/20 14:21 Dose: 1 mg Documented by: Sodium Chloride (Normal Saline) 1,000 mls @ 999 mls/hr IV BOLUS ONE; Protocol Stop: 10/04/20 11:44 Last Admin: 10/04/20 11:06 Dose: 999 mls/hr Documented by: Sodium Chloride (Normal Saline) 100 mls @ 3 mls/sec IV ASDIRECTED [facility] Stop: 10/04/20 11:46 Last Admin: 10/04/20 12:10 Dose: 3 mls/sec Documented by: Sodium Chloride (Normal Saline) 1,000 mls @ 999 mls/hr IV .BOLUS ONE Stop: 10/04/20 13:33 Last Admin: 10/04/20 12:50 Dose: 999 mls/hr Documented by: Lactated Ringer's (Ringers, Lactated) 1,000 mls @ 999 mls/hr IV ASDIRECTED [facility] Stop: 10/04/20 17:01 Piperacillin Sod/Tazobactam (Sod 3.375 gm/ Sodium Chloride) 50 mls @ 100 mls/hr IV Q6H [facility] Last Admin: 10/05/20 04:42 Dose: 100 mls/hr Documented by: Vancomycin HCl 2 gm/ Sodium (Chloride) 500 mls @ 250 mls/hr IV ONETIME ONE Stop: 10/04/20 18:59 Last Admin: 10/04/20 17:25 Dose: 250 mls/hr Documented by: Vancomycin HCl 1.25 gm/ Sodium (Chloride) 250 mls @ 166.667 mls/hr IV Q12H [facility] Last Admin: 10/05/20 05:21 Dose: 166.667 mls/hr Documented by: Lactated Ringer's (Ringers, Lactated) 1,000 mls @ 125 mls/hr IV ASDIRECTED [facility] Last Admin: 10/05/20 05:23 Dose: 125 mls/hr Documented by: Piperacillin/Tazobactam/ (Dextrose 3.375 gm/ Premix) 50 mls @ 100 mls/hr IV Q6H [facility] Last Admin: 10/06/20 16:41 Dose: 100 mls/hr Documented by: Lactated Ringer's (Ringers, Lactated) 1,000 mls @ 75 mls/hr IV ASDIRECTED [facility] Last Admin: 10/05/20 15:15 Dose: 75 mls/hr Documented by: Iopamidol (Iopamidol 612 Mg/Ml 500 Ml Multipack Bottle) 123 ml IV ONETIME ONE Stop: 10/04/20 11:37 Last Admin: 10/04/20 12:10 Dose: 123 ml Documented by: Sodium Chloride (Sodium Chloride 0.9% 10 Ml Syringe) 10 ml FLUSH ASDIRECTED PRN PRN Reason: Keep Vein Open Last Admin: 10/04/20 12:10 Dose: 10 ml Documented by: Sodium Chloride (Sodium Chloride 0.9% 10 Ml Sdv) 10 ml FLUSH ONETIME ONE Stop: 10/04/20 11:37 Last Admin: 10/04/20 17:49 Dose: Not Given Documented by: Vancomycin HCl (Vancomycin 1 Gm Sdv) 1 gm IV .PHARMACY TO DOSE ROD Stop: 10/05/20 08:00 - Exam Quality Assessment: No: Supplemental Oxygen General: Alert, Oriented, Cooperative, No Acute Distress Lungs: Normal Respiratory Effort GI/Abdominal Exam: Soft, No Distention Extremities: No Pedal Edema Psy/Mental Status: Alert, Normal Affect - Patient Data Lab Results Last 24 hrs: Laboratory Results - last 24 hr 10/07/20 10/07/20 Range/Units 05:30 05:30 WBC 3.8 L (4.5-11.0) K/uL RBC 4.53 (4.30-5.90) M/uL Hgb 13.0 (12.0-15.0) g/dL Hct 39.4 L (40.0-54.0) % MCV 87 (80-98) fL MCH 29 (27-31) pg MCHC 33 (32-36) % Plt Count 65 L (150-400) K/uL Sodium 142 (140-148) mmol/L Potassium 3.6 (3.6-5.2) mmol/L Chloride 108 (100-108) mmol/L Carbon Dioxide 25 (21-32) mmol/L Anion Gap 12.6 (5.0-14.0) mmol/L BUN 22 H (7-18) mg/dL Creatinine 0.7 L (0.8-1.3) mg/dL Est Cr Clr Drug Dosing 151.77 mL/min Estimated GFR (MDRD) > 60 (>60) Glucose 87 (74-106) mg/dL Calcium 7.9 L (8.5-10.1) mg/dL Total Bilirubin 0.5 (0.2-1.0) mg/dL AST 49 H (15-37) U/L ALT 105 H (12-78) U/L Alkaline Phosphatase 277 H (46-116) U/L C-Reactive Protein 7.54 H (0.0-0.3) mg/dL Total Protein 5.5 L (6.4-8.2) g/dL Albumin 2.0 L (3.4-5.0) g/dL Globulin 3.5 (2.3-3.5) g/dL Albumin/Globulin Ratio 0.6 L (1.2-2.2) Result Diagrams: 10/07/20 05:30 10/07/20 05:30 [facility] Results Last 24 hrs: Microbiology 10/04/20 11:20 Aerobic Blood Culture - Preliminary Blood - Arm, Right NO GROWTH AFTER 2 DAYS Anaerobic Blood Culture - Preliminary NO GROWTH AFTER 2 DAYS 10/04/20 11:15 Aerobic Blood Culture - Preliminary Blood - Arm, Right NO GROWTH AFTER 2 DAYS Anaerobic Blood Culture - Preliminary NO GROWTH AFTER 2 DAYS Sepsis Event Note - Evaluation Sepsis Screening Result: No Definite Risk - Focused Exam Vital Signs: Vital Signs Temp Pulse Resp BP Pulse Ox 10/07/20 08:00 36.4 C 80 20 102/58 L 99 10/07/20 04:00 36.6 C 73 16 119/75 97 10/07/20 00:00 36.6 C 76 15 110/78 99 - Problem List Review Problem List Initiated/Reviewed/Updated: Yes - My Orders Last 24 Hours: My Active Orders 10/06/20 09:06 Discontinue Telemetry Monitoring [Cardiac Monitoring Discontinue] [RC] Click to Edit 10/06/20 09:27 Ketorolac [Toradol] 30 mg IVPUSH Q6H PRN 10/07/20 10:01 methylPREDNISolone Sod Succ [Solu-MEDROL] 125 mg IVPUSH ONETIME ONE - Plan Plan:: ASSESSMENT AND PLAN PROBABLE ANAPLASMOSIS-history and laboratory studies fit. Titers are pending. Still experiencing a fair amount of myalgias and pleuritic pain but vital signs have been stable. Patient still feels quite uncomfortable. Blood cultures remain negative. -Dose of IV Solu-Medrol today -Follow-up serology for tick diseases -Follow-up blood cultures -Continue doxycycline -Nausea and pain medication as needed SEVERE THROMBOCYTOPENIA-likely secondary to underlying infection, levels are improving. -Recheck platelet count in a.m. HISTORY OF IV DRUG USE-he reports recent use of IV fentanyl and methamphetamine. He is interested in treatment. -Monitor for withdrawal -Outpatient rule 25 and treatment TOBACCO DEPENDENCE- -encourage cessation MAINTENANCE ISSUES -DVT prophylaxis; SCUDs -GI prophylaxis; not indicated -Bob catheter; not indicated -Nutrition; regular diet DISPOSITION-anticipate discharge to home after the hospital stay, hopefully tomorrow if stable overnight Endy Morgan MD
--- NOTE | 2020-10-07 18:36 | PCM.DCSUM1 ---
Discharge Summary - Hospital Course Brief History: 40-year-old male with history of IV drug abuse who presented with fever, myalgia and fatigue. He was admitted for management with concern for infective endocarditis. 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 Work-up in the emergency room revealed mild tachycardia, leukopenia and thrombocytopenia. The patient has a history of IV drug abuse and initially there was concern for endocarditis. Blood cultures were obtained and he was started on broad-spectrum antibiotic coverage. He was admitted to the hospital for further management. Overnight following admission there were no acute issues. He did continue to be mildly tachycardic. There is no evidence for withdrawal from methamphetamine or opiates. Further discussion with the patient revealed that he had had some recent tick exposures and concerns shifted more towards anaplasmosis than the endocarditis. The vancomycin was discontinued and doxycycline was started in its place. Pip/Tazo was continued. Over the next couple of days we saw a slow but steady improvement in his symptoms. His fever curve improved and fever resolved. His blood cultures have remained negative. He does continue to experience some myalgias but they have been improving. His appetite has improved. He has not had any nausea. Vital signs have stabilized and his heart rate has been normal for a couple of days. He did receive a dose of IV steroids on the day of discharge to help improve his myalgias. Initially the plan was for him to stay 1 additional night but later in the evening he decided that he felt well enough to go home. I sent a prescription for the doxycycline to [facility] pharmacy and the [facility] Patient will follow up with his primary care if symptoms do not continue to get better or if they get worse. Regarding his recent IV drug use and methamphetamine use, the patient is aware of resources in his hometown and will be seeking out a rule 25 evaluation. He is interested in getting help with his addiction. - Patient Instructions Diet: Regular Diet as Tolerated Activity: As Tolerated Showering/Bathing: May Shower Notify Provider of: Fever, Increased Pain Other/Special Instructions: 1. 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 The serologies to confirm this are still pending at this time but our clinical suspicion is high enough that even if the serologies come back negative that we would complete the course of treatment. I recommend that you take doxycycline 100 mg twice daily for 36 doses. Your first dose outside of the hospital will be due tonight. You should take the antibiotic with food to avoid stomach upset. 2. I would encourage you to complete a rule 25 assessment to seek treatment opportunities to help with your IV drug use. - Discharge Plan *PRESCRIPTION DRUG MONITORING PROGRAM REVIEWED*: Not Applicable *COPY OF PRESCRIPTION DRUG MONITORING REPORT IN PATIENT [place]: Not Applicable Prescriptions/Med Rec: Doxycycline Monohydrate 100 mg PO BID #36 capsule Home Medications: Home Meds Doxycycline Monohydrate 100 mg PO BID #36 capsule 10/07/20 [Rx] Patient Handouts: Doxycycline tablets or capsules, Ehrlichiosis and Anaplasmosis Referrals: PCP,None [Primary Care Provider] - (f/u as needed if symptoms do not continue to improve ) - Discharge Summary/Plan Comment DC Time >30 min.: No - Patient Data Vitals - Most Recent: Last Vital Signs Temp 36.6 C 10/07/20 16:00 Pulse 67 10/07/20 16:00 Resp 16 10/07/20 16:00 BP 113/68 10/07/20 16:00 Pulse Ox 94 L 10/07/20 16:00 Weight - Most Recent: 81.647 kg I&O - Last 24 hours: Intake & Output 10/07/20 10/07/20 10/07/20 06:59 14:59 22:59 Intake Total 500 1580 Balance 500 1580 Lab Results - Last 24 hrs: Laboratory Results - last 24 hr 10/07/20 10/07/20 Range/Units 05:30 05:30 WBC 3.8 L (4.5-11.0) K/uL RBC 4.53 (4.30-5.90) M/uL Hgb 13.0 (12.0-15.0) g/dL Hct 39.4 L (40.0-54.0) % MCV 87 (80-98) fL MCH 29 (27-31) pg MCHC 33 (32-36) % Plt Count 65 L (150-400) K/uL Sodium 142 (140-148) mmol/L Potassium 3.6 (3.6-5.2) mmol/L Chloride 108 (100-108) mmol/L Carbon Dioxide 25 (21-32) mmol/L Anion Gap 12.6 (5.0-14.0) mmol/L BUN 22 H (7-18) mg/dL Creatinine 0.7 L (0.8-1.3) mg/dL Est Cr Clr Drug Dosing 151.77 mL/min Estimated GFR (MDRD) > 60 (>60) Glucose 87 (74-106) mg/dL Calcium 7.9 L (8.5-10.1) mg/dL Total Bilirubin 0.5 (0.2-1.0) mg/dL AST 49 H (15-37) U/L ALT 105 H (12-78) U/L Alkaline Phosphatase 277 H (46-116) U/L C-Reactive Protein 7.54 H (0.0-0.3) mg/dL Total Protein 5.5 L (6.4-8.2) g/dL Albumin 2.0 L (3.4-5.0) g/dL Globulin 3.5 (2.3-3.5) g/dL Albumin/Globulin Ratio 0.6 L (1.2-2.2) CAROLYN Results - Last 24 hrs: Microbiology 10/04/20 11:15 Aerobic Blood Culture - Preliminary Blood - Arm, Right NO GROWTH AFTER 3 DAYS Anaerobic Blood Culture - Preliminary NO GROWTH AFTER 3 DAYS 10/04/20 11:20 Aerobic Blood Culture - Preliminary Blood - Arm, Right NO GROWTH AFTER 3 DAYS Anaerobic Blood Culture - Preliminary NO GROWTH AFTER 3 DAYS Med Orders - Current: Current Medications Acetaminophen (Acetaminophen 325 Mg Tab) 650 mg PO Q4H PRN PRN Reason: Pain (Mild 1-3)/fever Last Admin: 10/06/20 01:20 Dose: 650 mg Documented by: Hydromorphone HCl (Hydromorphone 1 Mg/Ml Syringe) 1 mg IVPUSH Q3H PRN PRN Reason: Pain (severe 7-10) Last Admin: 10/07/20 14:20 Dose: 1 mg Documented by: Doxycycline Hyclate 100 mg/ (Sodium Chloride) 100 mls @ 100 mls/hr IV Q12H [facility] Last Admin: 10/07/20 09:09 Dose: 100 mls/hr Documented by: Ketorolac Tromethamine (Ketorolac 30 Mg/Ml Sdv) 30 mg IVPUSH Q6H PRN PRN Reason: Pain (moderate 4-6) Stop: 10/11/20 09:28 Last Admin: 10/07/20 17:00 Dose: 30 mg Documented by: Ondansetron HCl (Ondansetron 4 Mg/2 Ml Sdv) 4 mg IV Q4H PRN PRN Reason: Nausea/Vomiting Polyethylene Glycol (Polyethylene Glycol 3350 Powder 17 Gm Packet) 17 gm PO DA JEFFERY PRN PRN Reason: Constipation Discontinued Medications Hydromorphone HCl (Hydromorphone 1 Mg/Ml Syringe) 1 mg IVPUSH Q1H PRN PRN Reason: Pain Last Admin: 10/04/20 14:21 Dose: 1 mg Documented by: Sodium Chloride (Normal Saline) 1,000 mls @ 999 mls/hr IV BOLUS ONE; Protocol Stop: 10/04/20 11:44 Last Admin: 10/04/20 11:06 Dose: 999 mls/hr Documented by: Sodium Chloride (Normal Saline) 100 mls @ 3 mls/sec IV ASDIRECTED [facility] Stop: 10/04/20 11:46 Last Admin: 10/04/20 12:10 Dose: 3 mls/sec Documented by: Sodium Chloride (Normal Saline) 1,000 mls @ 999 mls/hr IV .BOLUS ONE Stop: 10/04/20 13:33 Last Admin: 10/04/20 12:50 Dose: 999 mls/hr Documented by: Lactated Ringer's (Ringers, Lactated) 1,000 mls @ 999 mls/hr IV ASDIRECTED [facility] Stop: 10/04/20 17:01 Piperacillin Sod/Tazobactam (Sod 3.375 gm/ Sodium Chloride) 50 mls @ 100 mls/hr IV Q6H [facility] Last Admin: 10/05/20 04:42 Dose: 100 mls/hr Documented by: Vancomycin HCl 2 gm/ Sodium (Chloride) 500 mls @ 250 mls/hr IV ONETIME ONE Stop: 10/04/20 18:59 Last Admin: 10/04/20 17:25 Dose: 250 mls/hr Documented by: Vancomycin HCl 1.25 gm/ Sodium (Chloride) 250 mls @ 166.667 mls/hr IV Q12H [facility] Last Admin: 10/05/20 05:21 Dose: 166.667 mls/hr Documented by: Lactated Ringer's (Ringers, Lactated) 1,000 mls @ 125 mls/hr IV ASDIRECTED [facility] Last Admin: 10/05/20 05:23 Dose: 125 mls/hr Documented by: Piperacillin/Tazobactam/ (Dextrose 3.375 gm/ Premix) 50 mls @ 100 mls/hr IV Q6H [facility] Last Admin: 10/06/20 16:41 Dose: 100 mls/hr Documented by: Lactated Ringer's (Ringers, Lactated) 1,000 mls @ 75 mls/hr IV ASDIRECTED [facility] Last Admin: 10/05/20 15:15 Dose: 75 mls/hr Documented by: Iopamidol (Iopamidol 612 Mg/Ml 500 Ml Multipack Bottle) 123 ml IV ONETIME ONE Stop: 10/04/20 11:37 Last Admin: 10/04/20 12:10 Dose: 123 ml Documented by: Methylprednisolone Sodium Succinate (Methylprednisolone Sodium Succinate 125 Mg/2 Ml Sdv) 125 mg IVPUSH ONETIME ONE Stop: 10/07/20 10:02 Last Admin: 10/07/20 10:40 Dose: 125 mg Documented by: Sodium Chloride (Sodium Chloride 0.9% 10 Ml Syringe) 10 ml FLUSH ASDIRECTED PRN PRN Reason: Keep Vein Open Last Admin: 10/04/20 12:10 Dose: 10 ml Documented by: Sodium Chloride (Sodium Chloride 0.9% 10 Ml Sdv) 10 ml FLUSH ONETIME ONE Stop: 10/04/20 11:37 Last Admin: 10/04/20 17:49 Dose: Not Given Documented by: Vancomycin HCl (Vancomycin 1 Gm Sdv) 1 gm IV .PHARMACY TO DOSE [facility] Stop: 10/05/20 08:00 *Q Meaningful Use (DIS) - VTE *Q VTE Pharmacological Contraindications *Q: Thrombocytopenia
[2020-10-08 11:10] LABS: LYME IGG/IGM AB <0.91 ISR (0.00-0.90)
[2020-10-08 16:11] LABS: HGE IGG TITER Negative (Neg:<1:64); HGE IGM TITER Negative (Neg:<1:20)
== END 2020-10-07 18:50 | disposition home or self-care (01) | DRG 868 ==
LOC: JP.ED 10:33 → JP.ICU 16:04
PROVIDERS: ADMIT Hospitalist; ATTEND Internal Medicine
DX: A77.49 Other ehrlichiosis (principal); F19.20 Other psychoactive substance dependence, uncomplicated; Z20.822 Contact with and (suspected) exposure to COVID-19
CPT/HCPCS: 0241U; 36415; 71046; 74177; 80053; 80305-QW; 81001; 83605; 83735; 84145; 85025; 85027; 85379; 85384; 85610; 85730; 86140; 86618; 86666; 87040; 87449; 93005; 99222; 99232; 99238; 99285; 99285-25; A9270-GY; J1170; J1885; J2543; J2930; J3370; J3490; J7030; J7040; J7050; J7120; Q9967

== ENCOUNTER 2022-06-02 05:53 | Inpatient (IN) | payer MEDICAID ==
[2022-06-02] MEDS ORDERED: Ketorolac 15 MG/ML SDV IVPUSH ONE (05:55)
[2022-06-02] MEDS ORDERED: Ondansetron 4 MG/2 ML SDV IVPUSH ONE (05:55)
[2022-06-02] MEDS ORDERED: Sodium Chloride 0.9% 1,000 ML IV SCH ×2 (06:00→07:00)
[2022-06-02] MEDS ORDERED: Sodium Chloride 0.9% 50 ML IV STA (06:08)
[2022-06-02] MEDS ORDERED: Iopamidol 612 MG/ML 100 ML Bottle IV STA (06:08)
[2022-06-02 06:31] LABS: ESTIMATED GFR 71 mL/min (>60)
[2022-06-02 06:42] LABS: CORONAVIRUS COVID-19 NAA NEGATIVE (NEGATIVE)
[2022-06-02] MEDS ORDERED: Levofloxacin/Dextrose 5%-Water 750 MG in Premix Bag 1 BAG IV SCH (06:45)
[2022-06-02] MEDS ORDERED: cefTRIAXone 2 GM in Sodium Chloride 0.9% 50 ML IV SCH (07:00)
[2022-06-02] MEDS ORDERED: Sodium Chloride 0.9% 500 ML IV ONE ×2 (08:24→10:54)
[2022-06-02] MEDS ORDERED: Norepinephrine Bit/D5W Premix 4 MG in Premix Bag 1 BAG IV SCH (08:45)
[2022-06-02] MEDS ORDERED: fentaNYL 50 MCG/ML SDV IVPUSH ONE (09:00)
[2022-06-02] MEDS ORDERED: Acetaminophen 1,000 MG in Premix Bag 1 BAG IV ONE (09:01)
[2022-06-02] MEDS ORDERED: Albuterol 0.083% 2.5 MG/3 ML Neb Soln NEB PRN (10:04)
[2022-06-02] MEDS ORDERED: Magnesium Hydroxide 400 MG/5 ML Susp 30 ML Cup PO PRN (10:04)
[2022-06-02] MEDS ORDERED: Ondansetron 4 MG Tab.DIS PO PRN (10:04)
[2022-06-02] MEDS ORDERED: Ondansetron 4 MG/2 ML SDV IV PRN (10:04)
[2022-06-02] MEDS ORDERED: Hydrocortisone Sodium Succinate 100 MG/2 ML SDV IVPUSH ONE (10:30)
[2022-06-02] MEDS: oxyCODONE 5 MG Tab PO PRN ×4 (10:32→23:56)
[2022-06-02] MEDS: Benzonatate 100 MG Cap PO PRN ×2 (10:32→23:58)
[2022-06-02] MEDS: Codeine/guaiFENesin 10-100 MG/5 ML Syrup 5 ML Cup PO PRN ×2 (10:32→19:38)
[2022-06-02] MEDS: Nicotine 14 MG/24 Hr Patch TRDERM PRN (10:33)
[2022-06-02] MEDS: Benzocaine/Cetylpyridinium/Menthol Lozenge MUCMEM PRN (10:33)
[2022-06-02] MEDS: Sodium Chloride 0.9% 1,000 ML IV SCH ×2 (10:51→14:19)
[2022-06-02] MEDS: LORazepam 0.5 MG Tab PO PRN ×3 (10:54→23:57)
[2022-06-02] MEDS: Melatonin 3 MG Tab PO PRN (10:54)
[2022-06-02] MEDS: fentaNYL 50 MCG/ML SDV IVPUSH PRN (11:56)
[2022-06-02] MEDS: Acetaminophen 325 MG Tab PO PRN (11:56)
[2022-06-02] MEDS: Ketorolac 30 MG/ML SDV IVPUSH PRN (17:11)
[2022-06-02] MEDS: Pantoprazole 40 MG Tab.CR PO SCH ×2 (19:55→20:05)
[2022-06-02] MEDS: Lactobacillus Rhamnosus GG (Probiotic) Cap PO SCH ×2 (19:55→20:05)
[2022-06-03] MEDS: Sodium Chloride 0.9% 1,000 ML IV SCH (00:11)
[2022-06-03] MEDS: Benzocaine/Cetylpyridinium/Menthol Lozenge MUCMEM PRN ×2 (00:11→17:03)
[2022-06-03] MEDS: Melatonin 3 MG Tab PO PRN ×2 (00:11→20:26)
[2022-06-03] MEDS: fentaNYL 50 MCG/ML SDV IVPUSH PRN ×2 (03:24→08:13)
[2022-06-03] MEDS: cefTRIAXone 2 GM in Sodium Chloride 0.9% 50 ML IV SCH (05:54)
[2022-06-03 06:46] LABS: ESTIMATED GFR 111 mL/min (>60)
[2022-06-03] MEDS: Lactobacillus Rhamnosus GG (Probiotic) Cap PO SCH ×2 (08:25→20:20)
[2022-06-03] MEDS: Levofloxacin/Dextrose 5%-Water 750 MG in Premix Bag 1 BAG IV SCH (08:29)
[2022-06-03] MEDS: Nicotine 14 MG/24 Hr Patch TRDERM PRN (08:49)
[2022-06-03] MEDS: oxyCODONE 5 MG Tab PO PRN (09:32)
[2022-06-03] MEDS: Benzonatate 100 MG Cap PO PRN (09:32)
[2022-06-03] MEDS: LORazepam 0.5 MG Tab PO PRN ×2 (09:32→20:26)
[2022-06-03] MEDS: HYDROmorphone 1 MG/ML Syringe IVPUSH PRN ×4 (10:48→20:13)
[2022-06-03] MEDS ORDERED: chlorproMAZINE 25 MG Tab PO PRN (16:37)
[2022-06-03] MEDS: Acetaminophen 325 MG Tab PO PRN (20:13)
[2022-06-03] MEDS: Pantoprazole 40 MG Tab.CR PO SCH (20:21)
[2022-06-04] MEDS: HYDROmorphone 1 MG/ML Syringe IVPUSH PRN ×6 (00:08→17:18)
[2022-06-04] MEDS: Codeine/guaiFENesin 10-100 MG/5 ML Syrup 5 ML Cup PO PRN ×4 (02:50→23:48)
[2022-06-04] MEDS: Acetaminophen 325 MG Tab PO PRN (05:06)
[2022-06-04] MEDS: cefTRIAXone 2 GM in Sodium Chloride 0.9% 50 ML IV SCH (05:11)
[2022-06-04] MEDS: Levofloxacin/Dextrose 5%-Water 750 MG in Premix Bag 1 BAG IV SCH (07:20)
[2022-06-04] MEDS: Lactobacillus Rhamnosus GG (Probiotic) Cap PO SCH ×2 (08:52→20:39)
[2022-06-04] MEDS: LORazepam 0.5 MG Tab PO PRN ×3 (08:52→20:39)
[2022-06-04] MEDS ORDERED: predniSONE 20 MG Tab PO ONE (10:15)
[2022-06-04] MEDS: Ketorolac 30 MG/ML SDV IVPUSH PRN (10:40)
[2022-06-04] MEDS: Nicotine 14 MG/24 Hr Patch TRDERM PRN (12:38)
[2022-06-04] MEDS: Pantoprazole 40 MG Tab.CR PO SCH (20:39)
[2022-06-04] MEDS: Melatonin 3 MG Tab PO PRN (20:39)
[2022-06-04] MEDS: Benzocaine/Cetylpyridinium/Menthol Lozenge MUCMEM PRN (23:48)
[2022-06-04] MEDS: Benzonatate 100 MG Cap PO PRN (23:48)
[2022-06-05] MEDS: LORazepam 0.5 MG Tab PO PRN ×5 (03:59→20:36)
[2022-06-05] MEDS: cefTRIAXone 2 GM in Sodium Chloride 0.9% 50 ML IV SCH (05:00)
[2022-06-05] MEDS: Lactobacillus Rhamnosus GG (Probiotic) Cap PO SCH ×2 (08:09→20:34)
[2022-06-05] MEDS ORDERED: Levofloxacin 500 MG Tab PO SCH (09:15)
[2022-06-05] MEDS: Levofloxacin/Dextrose 5%-Water 750 MG in Premix Bag 1 BAG IV SCH (10:18)
[2022-06-05] MEDS: Cefdinir 300 MG Cap PO SCH ×2 (10:48→20:33)
[2022-06-05] MEDS: Codeine/guaiFENesin 10-100 MG/5 ML Syrup 5 ML Cup PO PRN (12:38)
[2022-06-05] MEDS: Benzocaine/Cetylpyridinium/Menthol Lozenge MUCMEM PRN (15:52)
[2022-06-05] MEDS: Pantoprazole 40 MG Tab.CR PO SCH (20:34)
[2022-06-05] MEDS: Nicotine 14 MG/24 Hr Patch TRDERM PRN (21:05)
[2022-06-06] MEDS: Codeine/guaiFENesin 10-100 MG/5 ML Syrup 5 ML Cup PO PRN ×2 (00:12→08:45)
[2022-06-06] MEDS: Benzonatate 100 MG Cap PO PRN (00:12)
[2022-06-06] MEDS: LORazepam 0.5 MG Tab PO PRN ×3 (00:39→09:46)
[2022-06-06] MEDS: Benzocaine/Cetylpyridinium/Menthol Lozenge MUCMEM PRN (02:03)
[2022-06-06] MEDS: Melatonin 3 MG Tab PO PRN (03:16)
[2022-06-06] MEDS: Acetaminophen 325 MG Tab PO PRN (03:16)
[2022-06-06] MEDS: Cefdinir 300 MG Cap PO SCH (08:46)
[2022-06-06] MEDS: Lactobacillus Rhamnosus GG (Probiotic) Cap PO SCH (08:46)
== END 2022-06-06 11:30 | disposition home or self-care (01) | DRG 871 ==
LOC: JP.ED 05:53 → JP.MS 09:26
PROVIDERS: ADMIT Internal Medicine; ATTEND Internal Medicine
DX: A41.9 Sepsis, unspecified organism (principal); J18.9 Pneumonia, unspecified organism; N17.9 Acute kidney failure, unspecified; F15.10 Other stimulant abuse, uncomplicated; F17.210 Nicotine dependence, cigarettes, uncomplicated; G89.29 Other chronic pain; M54.2 Cervicalgia; Z20.822 Contact with and (suspected) exposure to COVID-19; I95.9 Hypotension, unspecified; Z79.899 Other long term (current) drug therapy
CPT/HCPCS: 0241U; 36415; 71046; 74177; 80048; 80053; 83605; 83690; 85025; 85027; 86140; 87040; 87070; 87077; 87205; 96360; 96365; 96367; 96375; 99285; 99285-25; A9270-GY; J0131; J0696; J1170; J1720; J1885; J1956; J2405; J3010; J3490; J7030; J7040; J7512; Q9967

== ENCOUNTER 2024-09-18 18:25 | Emergency (ER) | payer SELFPAY | END 2024-09-18 19:15 | disposition left against medical advice (07) | LOC: JP.ED 18:25 | DX: S00.03XA Contusion of scalp, initial encounter (principal); S69.92XA Unspecified injury of left wrist, hand and finger(s), initial encounter; F17.200 Nicotine dependence, unspecified, uncomplicated; W22.8XXA Striking against or struck by other objects, initial encounter | CPT/HCPCS: 99283 ==